=== PATIENT | female | born 1945 | race Caucasian/White ===

== ENCOUNTER 2017-08-28 15:33 | Inpatient (IN) | payer MEDICARE ==
[2017-08-28] MEDS ORDERED: Sodium Chloride 0.65% Nasal 44 ML BOT EA NARE PRN (17:41)
[2017-08-28] MEDS ORDERED: traMADol HCl 50 MG TAB PO PRN (17:41)
[2017-08-28] MEDS ORDERED: GENTAMICIN SULFATE IVPB SCH (17:45)
[2017-08-28] MEDS ORDERED: Dextrose 50% Abboject 50 ML SYRINGE SLOW IVP PRN (17:48)
[2017-08-28] MEDS ORDERED: Dextrose 5% in Water 1,000 ML IV PRN (17:48)
[2017-08-28] MEDS ORDERED: Sodium Chloride 0.9% 0 ML ONE (18:11)
[2017-08-28 18:17] LABS: Glucose Accucheck Confirmation 521 mg/dl (83-110)
[2017-08-28] MEDS: HumaLOG 300 UNITS/3 ML VIAL SC PRN ×2 (18:28→21:35)
[2017-08-28] MEDS: Levemir Flexpen 100 UNITS/ML PEN SC SCH (18:40)
[2017-08-28] MEDS: traMADol HCl 50 MG TAB PO PRN (19:31)
[2017-08-28] MEDS ORDERED: Sodium Chloride 0.9% 20 ML ONE (20:08)
[2017-08-28] MEDS: Gabapentin 100 MG CAP PO SCH (20:23)
[2017-08-28] MEDS: Famotidine 20 MG TAB PO SCH (20:24)
[2017-08-28] MEDS: cefTRIAXone\\ROCEPHIN 2 GM in Sodium Chloride 0.9% 100 ML IVPB SCH (21:23)
[2017-08-28] MEDS: Zolpidem Tartrate 5 MG TAB PO PRN (22:08)
[2017-08-28] MEDS ORDERED: BIOFREEZE TOP PRN (22:19)
[2017-08-28] MEDS ORDERED: PAIN A TRATE TOP PRN (22:22)
[2017-08-29] MEDS: Levothyroxine Sodium 112 MCG TAB PO SCH (05:32)
[2017-08-29] MEDS: Levothyroxine Sodium 25 MCG TAB PO SCH (05:32)
[2017-08-29] MEDS: HumaLOG 300 UNITS/3 ML VIAL SC PRN (05:33)
[2017-08-29 05:56] LABS: ALT (SGPT) Less than 3 U/L (8-55); AST (SGOT) 11 U/L (5-34); Albumin 2.8 g/dL (3.4-4.8); Alkaline Phosphatase 85 U/L (40-150); Anion Gap 16 mmol/L (10-20); BUN (Urea Nitrogen) 59 mg/dL (9.8-20.1); Bilirubin, Total 0.2 mg/dL (0.2-1.2); Calc. Creatinine Clearance 13 mL/min (70-130); Calcium 9.6 mg/dL (7.8-10.44); Carbon Dioxide 25 mmol/L (23-31); Chloride 97 mmol/L (98-107); Estimated GFR-MDRD 7; Globulin 4.6 g/dL (2.4-3.5); Glucose 271 mg/dL (83-110); Potassium 5.4 mmol/L (3.5-5.1); Protein, Total 7.4 g/dL (6.0-8.3); Sodium 133 mmol/L (136-145)
[2017-08-29 06:04] LABS: #Basophils 0.1 thou/uL (0.0-0.2); #Lymphocytes 0.6 thou/uL (1.20-3.40); #Monocytes 0.5 thou/uL (0.11-0.59); #Neutrophils 4.4 thou/uL (1.40-6.50); %Eosinophils 0.8 % (0.0-10.0); %Lymphocytes 11.2 % (21.0-51.0); %Monocytes 9.4 % (0.0-10.0); %Neutrophils 77.5 % (42.0-75.0); Hemoglobin 8.9 g/dL (12.0-16.0); Mean Corpuscular HGB CONC 30.2 g/dL (32.0-36.0); Mean Corpuscular Hemoglobin 31.6 pg (27.0-31.0); Mean Platelet Volume 7.1 fL (7.4-10.4); Platelet Count 172 thou/uL (130-400); RBC Distribution Width 17.3 % (11.5-14.5); Red Blood Cell (RBC) Count 2.83 mill/uL (4.20-5.40); White Blood Cell (WBC) Count 5.6 thou/uL (4.8-10.8)
[2017-08-29 06:05] LABS: Hypochromia SLIGHT = 6-15 cells (100X) (0-5/hpf); MDiff Complete? YES; Macrocytosis MODERATE=16-30 cells (100X) (0-5/hpf); PLT Morphology Comment Appears Adequate
[2017-08-29] MEDS: traMADol HCl 50 MG TAB PO PRN ×3 (08:44→21:12)
[2017-08-29] MEDS: Famotidine 20 MG TAB PO SCH ×2 (08:49→21:11)
[2017-08-29] MEDS: NIFEdipine XL 30 MG TAB PO SCH (08:49)
[2017-08-29] MEDS: Gabapentin 100 MG CAP PO SCH ×2 (08:49→21:11)
[2017-08-29] MEDS: Calcium Acetate 667 MG CAP PO SCH ×3 (08:49→17:21)
[2017-08-29] MEDS: HumaLOG 300 UNITS/3 ML VIAL SC SCH (08:49)
[2017-08-29] MEDS: FOLIC ACID PO SCH (08:50)
[2017-08-29] MEDS: VIT B COMPLEX AND C PO SCH (08:50)
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
[2017-08-29] MEDS ORDERED: cefTRIAXone\\ROCEPHIN 2 GM VIAL IVPB SCH (12:00)
[2017-08-29] MEDS: cefTRIAXone\\ROCEPHIN 2 GM in Sodium Chloride 0.9% 100 ML IVPB SCH (17:30)
[2017-08-29] MEDS: HYDROcodone/Acetaminophen 10/325 mg Tablet PO PRN (17:41)
[2017-08-29] MEDS: Levemir Flexpen 100 UNITS/ML PEN SC SCH (21:19)
[2017-08-29] MEDS: Zolpidem Tartrate 5 MG TAB PO PRN (22:13)
[2017-08-30] MEDS: Levothyroxine Sodium 25 MCG TAB PO SCH (06:18)
[2017-08-30] MEDS: Levothyroxine Sodium 112 MCG TAB PO SCH (06:18)
[2017-08-30] MEDS: HYDROcodone/Acetaminophen 10/325 mg Tablet PO PRN (06:26)
[2017-08-30] MEDS: NIFEdipine XL 30 MG TAB PO SCH (08:49)
[2017-08-30] MEDS: Gabapentin 100 MG CAP PO SCH ×2 (08:50→20:39)
[2017-08-30] MEDS: Calcium Acetate 667 MG CAP PO SCH ×3 (08:50→17:41)
[2017-08-30] MEDS: Famotidine 20 MG TAB PO SCH ×2 (08:51→20:39)
[2017-08-30] MEDS: VIT B COMPLEX AND C PO SCH (08:51)
[2017-08-30] MEDS: FOLIC ACID PO SCH (08:51)
--- NOTE | 2017-08-30 09:28 | PRG ---
DATE OF SERVICE: 08/30/2017 SUBJECTIVE: The patient is a 72-year-old white female with a history of recent septic arthritis on l mukesh-term antibiotics with gentamicin and Rocephin for serratia infection of her right knee, who also has a longstanding history of chronic renal failure on hemodialysis, requiring a Fan catheter bec ause of difficulty with her AV fistula. She has had also a history of chronic pain on fentanyl patch and Dilaudid previously. She at present is having significant pain in her right knee, but is tolera ble on fentanyl patch, hydrocodone and tramadol. She is having questions; however, about her admissi on to this facility and not wanted at [facility] near her home in dialysis unit. She denies any ch est pain or shortness of breath, nausea or vomiting or complaints at this time, but is asking if she can be transferred closer to home. PHYSICAL EXAMINATION: VITAL SIGNS: Show blood pressure 151/69, O2 sats 96%, respirations 18, pulse 61, afebrile. LABORATORY DATA: Accu-Cheks have ranged from 14 on admission to 151 this morning. Appears to be sta ble on her previous low dose of insulin. She has received dialysis yesterday with no difficulty. Sh e denies any shortness of breath or chest pain. ASSESSMENT AND PLAN: 1. Chronic renal failure on hemodialysis, stable 3 times weekly, we will continue. 2. Septic arthritis, right knee secondary to serratia on IV Rocephin and gentamicin with gentamicin being given at dialysis for 6-8 weeks. 3. Chronic pain control with fentanyl and now with hydrocodone. Appears to be sterilely stable. 4. History of deep venous thrombosis. No evidence of recent deep venous thrombosis on CT angio. 5. History of recurrent urinary tract infection with no evidence present. 6. Brittle diabetes controlled on low dose insulin. Monitor closely. 7. Hypertension with fair control on nifedipine and we will monitor.
[2017-08-30] MEDS: HumaLOG 300 UNITS/3 ML VIAL SC SCH (09:40)
[2017-08-30] MEDS: traMADol HCl 50 MG TAB PO PRN (09:43)
[2017-08-30] MEDS: Ondansetron ODT 4 MG TAB PO PRN (10:58)
[2017-08-30] MEDS ORDERED: Sodium Chloride 0.9% 10 ML ONE (17:09)
[2017-08-30] MEDS: cefTRIAXone\\ROCEPHIN 2 GM in Sodium Chloride 0.9% 100 ML IVPB SCH (17:34)
[2017-08-30] MEDS: HumaLOG 300 UNITS/3 ML VIAL SC PRN (17:38)
[2017-08-30] MEDS: Levemir Flexpen 100 UNITS/ML PEN SC SCH (20:38)
[2017-08-30] MEDS: Zolpidem Tartrate 5 MG TAB PO PRN (22:25)
[2017-08-31] MEDS: traMADol HCl 50 MG TAB PO PRN (05:58)
[2017-08-31] MEDS: Levothyroxine Sodium 112 MCG TAB PO SCH (05:59)
[2017-08-31] MEDS: Levothyroxine Sodium 25 MCG TAB PO SCH (05:59)
[2017-08-31] MEDS: Calcium Acetate 667 MG CAP PO SCH ×3 (07:57→17:08)
[2017-08-31] MEDS: fentaNYL 50 mcg/hour Patch TD SCH (09:47)
[2017-08-31] MEDS: Cyclobenzaprine 10 MG TAB PO PRN (09:50)
[2017-08-31] MEDS: Famotidine 20 MG TAB PO SCH ×2 (09:50→21:13)
[2017-08-31] MEDS: Gabapentin 100 MG CAP PO SCH ×2 (09:50→21:13)
[2017-08-31] MEDS: NIFEdipine XL 30 MG TAB PO SCH (09:50)
[2017-08-31] MEDS: HumaLOG 300 UNITS/3 ML VIAL SC SCH (09:52)
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
[2017-08-31] MEDS: FOLIC ACID PO SCH (09:58)
[2017-08-31] MEDS: VIT B COMPLEX AND C PO SCH (09:58)
[2017-08-31] MEDS: cefTRIAXone\\ROCEPHIN 2 GM in Sodium Chloride 0.9% 100 ML IVPB SCH (17:10)
[2017-08-31] MEDS: Levemir Flexpen 100 UNITS/ML PEN SC SCH (21:12)
[2017-08-31] MEDS: HYDROcodone/Acetaminophen 10/325 mg Tablet PO PRN (21:13)
[2017-09-01] MEDS: traMADol HCl 50 MG TAB PO PRN ×2 (04:00→20:34)
[2017-09-01] MEDS: Levothyroxine Sodium 112 MCG TAB PO SCH (05:29)
[2017-09-01] MEDS: Levothyroxine Sodium 25 MCG TAB PO SCH (05:29)
[2017-09-01] MEDS: Calcium Acetate 667 MG CAP PO SCH ×3 (08:22→16:59)
[2017-09-01] MEDS: Gabapentin 100 MG CAP PO SCH ×2 (08:23→20:39)
[2017-09-01] MEDS: Famotidine 20 MG TAB PO SCH ×2 (08:23→20:39)
[2017-09-01] MEDS: HumaLOG 300 UNITS/3 ML VIAL SC SCH (08:24)
[2017-09-01] MEDS: NIFEdipine XL 30 MG TAB PO SCH (08:25)
[2017-09-01] MEDS: FOLIC ACID PO SCH (08:26)
[2017-09-01] MEDS: VIT B COMPLEX AND C PO SCH (08:26)
[2017-09-01] MEDS: NEPHROVITE PO SCH (08:30)
[2017-09-01] MEDS: HYDROcodone/Acetaminophen 10/325 mg Tablet PO PRN ×2 (08:34→15:42)
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
[2017-09-01] MEDS: Cyclobenzaprine 10 MG TAB PO PRN (15:43)
[2017-09-01] MEDS: HumaLOG 300 UNITS/3 ML VIAL SC PRN (17:00)
[2017-09-01] MEDS: cefTRIAXone\\ROCEPHIN 2 GM in Sodium Chloride 0.9% 100 ML IVPB SCH (18:10)
[2017-09-01] MEDS: Levemir Flexpen 100 UNITS/ML PEN SC SCH (20:37)
[2017-09-01] MEDS: Zolpidem Tartrate 5 MG TAB PO PRN (22:51)
[2017-09-02] MEDS: HYDROcodone/Acetaminophen 10/325 mg Tablet PO PRN ×3 (03:21→20:36)
[2017-09-02] MEDS: Levothyroxine Sodium 112 MCG TAB PO SCH (06:22)
[2017-09-02] MEDS: Levothyroxine Sodium 25 MCG TAB PO SCH (06:22)
[2017-09-02] MEDS: Calcium Acetate 667 MG CAP PO SCH ×3 (08:18→16:46)
[2017-09-02] MEDS: NIFEdipine XL 30 MG TAB PO SCH (08:19)
[2017-09-02] MEDS: Gabapentin 100 MG CAP PO SCH ×2 (08:19→20:37)
[2017-09-02] MEDS: Famotidine 20 MG TAB PO SCH ×2 (08:19→20:37)
[2017-09-02] MEDS: HumaLOG 300 UNITS/3 ML VIAL SC SCH (08:19)
[2017-09-02] MEDS: VIT B COMPLEX AND C PO SCH (08:20)
[2017-09-02] MEDS: FOLIC ACID PO SCH (08:20)
[2017-09-02] MEDS: NEPHROVITE PO SCH (08:20)
[2017-09-02] MEDS ORDERED: Folic Acid/Vit B Comp W-C PO SCH (13:15)
[2017-09-02] MEDS: traMADol HCl 50 MG TAB PO PRN (16:47)
[2017-09-02] MEDS: HumaLOG 300 UNITS/3 ML VIAL SC PRN (17:05)
[2017-09-02] MEDS: cefTRIAXone\\ROCEPHIN 2 GM in Sodium Chloride 0.9% 100 ML IVPB SCH (17:43)
[2017-09-02] MEDS: Cyclobenzaprine 10 MG TAB PO PRN (20:37)
[2017-09-02] MEDS: Levemir Flexpen 100 UNITS/ML PEN SC SCH (20:37)
[2017-09-03] MEDS: HYDROcodone/Acetaminophen 10/325 mg Tablet PO PRN (03:28)
[2017-09-03] MEDS: Levothyroxine Sodium 25 MCG TAB PO SCH (06:19)
[2017-09-03] MEDS: Levothyroxine Sodium 112 MCG TAB PO SCH (06:19)
--- NOTE | 2017-09-03 07:04 | PRG ---
DATE OF SERVICE: 09/02/2017 SUBJECTIVE: The patient is complaining and wanting to be transferred closer to [place], stating she is still having significant pain in her right knee and also complaining of some problems with we akness in her hand and dropping things. She states she is not having any shortness of breath, headac hes, dizziness or chest pain. OBJECTIVE: VITAL SIGNS: Blood pressure is 170/76, O2 saturations 92% on room air, pulse is 80, she is afebrile. LUNGS: Lungs are clear. CARDIAC: Cardiac examination shows regular rhythm. EXTREMITIES: Right knee shows no erythema or warmth, but significant tenderness with any movement. She refused physical therapy again today and the CPM. I discussed the case with her daughter who und erstands about the insurance situation and about the refusal of [place] to take the patient and the need to stay on IV antibiotics and the fact that insurance most likely will not pay for this at [facility] and that her mother needs assistance which she would not receive at home. Therefore, came to the realization that senior living in the [place] may be the best alternative and will discuss this with her mother. ASSESSMENT: 1. Resolving septic knee of right knee status post incision and drainage, on IV Rocephin daily until 09/22/2017 and gentamicin after each dialysis until that time. 2. End-stage renal disease on dialysis Friday, Friday, and Friday, requiring transport to [place], but stable. 3. Chronic pain followed by Dr. Yeung, fentanyl patch and tramadol with fair control, but was still refusing therapy of her knee. 4. Recurrent urinary tract infection, no evidence of recurrence at this time. 5. History of deep venous thrombosis, no evidence of recurrence on prophylaxis. 6. Hypertension, well controlled. 7. Brittle diabetes on low dose insulin being controlled fairly on mild sliding scale. PLAN: 1. Discuss with hospital about possible acceptance at [place]. 2. Continue to stress need for physical therapy and CPM. 3. Continue IV Rocephin. 4. Continue low dose Levemir at night and Humalog in morning.
--- NOTE | 2017-09-03 07:14 | PRG ---
DATE OF SERVICE: 09/03/2017 SUBJECTIVE: The patient is awake and more cheerful today and has agreed to transfer to [facility] in [place] if this is possible. She also has agreed to comply with physical therapy a nd with CPM and will discuss with physical therapy again today as she has refused this in the past. She is more concerned about the tremors in her hand, but states that she has had this in the past whe n she was taking gabapentin twice daily and will therefore decrease the dose to once daily. She has denied any fever, chills or cough. OBJECTIVE: VITAL SIGNS: Shows her blood pressure is 155/65, O2 sats 94%, respirations 18, temperature is 97.9. Accu-Cheks have ranged from 97 to 348, but the patient is on a sliding scale in addition to her rout ine insulin. EXTREMITIES: Right knee is not swollen or red, but is significantly tender, but is able to move some what at this time. ASSESSMENT: 1. Resolving septic knee on IV Rocephin daily and gentamicin with follow up with her surgeon on 08/22. 2. End-stage renal disease on hemodialysis 3 times weekly, tolerating well. 3. Insulin-dependent diabetes on a low dose Levemir and Humalog. We will discontinue sliding scale and increase these doses of medication to 9 units of Levemir at night and 9 units Humalog in the morn ing. 4. Chronic pain, on fentanyl patch and tramadol with stable back pain and slightly improved knee eliz n, we will continue on his medication, but will decrease gabapentin. 5. Tremors, most likely due to gabapentin as this has occurred in the past and we will decrease dose to night time.
[2017-09-03] MEDS: Folic Acid/Vit B Comp W-C PO SCH (09:18)
[2017-09-03] MEDS: NIFEdipine XL 30 MG TAB PO SCH (09:18)
[2017-09-03] MEDS: Calcium Acetate 667 MG CAP PO SCH ×4 (09:19→19:18)
[2017-09-03] MEDS: Famotidine 20 MG TAB PO SCH ×2 (09:19→21:26)
[2017-09-03] MEDS: HumaLOG 300 UNITS/3 ML VIAL SC SCH (09:19)
[2017-09-03] MEDS: Cyclobenzaprine 10 MG TAB PO PRN ×2 (09:27→21:32)
[2017-09-03] MEDS: fentaNYL 50 mcg/hour Patch TD SCH (10:30)
[2017-09-03] MEDS: cefTRIAXone\\ROCEPHIN 2 GM in Sodium Chloride 0.9% 100 ML IVPB SCH (18:12)
[2017-09-03] MEDS ORDERED: Gabapentin 300 MG CAP PO SCH (21:00)
[2017-09-03] MEDS: Levemir Flexpen 100 UNITS/ML PEN SC SCH (21:27)
[2017-09-03] MEDS: Zolpidem Tartrate 5 MG TAB PO PRN (21:31)
[2017-09-04] MEDS: traMADol HCl 50 MG TAB PO PRN ×2 (05:51→12:06)
[2017-09-04] MEDS: Levothyroxine Sodium 25 MCG TAB PO SCH (05:51)
[2017-09-04] MEDS: Levothyroxine Sodium 112 MCG TAB PO SCH (05:51)
[2017-09-04] MEDS: HumaLOG 300 UNITS/3 ML VIAL SC SCH (08:21)
[2017-09-04] MEDS: NIFEdipine XL 30 MG TAB PO SCH (08:21)
[2017-09-04] MEDS: Calcium Acetate 667 MG CAP PO SCH ×3 (08:22→17:47)
[2017-09-04] MEDS: Famotidine 20 MG TAB PO SCH ×2 (08:23→21:28)
[2017-09-04] MEDS: Cyclobenzaprine 10 MG TAB PO PRN ×2 (08:23→18:04)
[2017-09-04] MEDS: Folic Acid/Vit B Comp W-C PO SCH (08:23)
[2017-09-04] MEDS: cefTRIAXone\\ROCEPHIN 2 GM in Sodium Chloride 0.9% 100 ML IVPB SCH (17:48)
[2017-09-04] MEDS: Levemir Flexpen 100 UNITS/ML PEN SC SCH (21:29)
[2017-09-05] MEDS: traMADol HCl 50 MG TAB PO PRN ×2 (02:18→20:14)
[2017-09-05] MEDS: Levothyroxine Sodium 112 MCG TAB PO SCH (05:29)
[2017-09-05] MEDS: Levothyroxine Sodium 25 MCG TAB PO SCH (05:29)
[2017-09-05] MEDS: HYDROcodone/Acetaminophen 10/325 mg Tablet PO PRN (06:25)
[2017-09-05] MEDS: Famotidine 20 MG TAB PO SCH ×2 (07:55→20:14)
[2017-09-05] MEDS: Calcium Acetate 667 MG CAP PO SCH ×3 (07:55→17:00)
[2017-09-05] MEDS: Folic Acid/Vit B Comp W-C PO SCH (07:55)
[2017-09-05] MEDS: NIFEdipine XL 30 MG TAB PO SCH (07:56)
[2017-09-05] MEDS: HumaLOG 300 UNITS/3 ML VIAL SC SCH (07:59)
--- NOTE | 2017-09-05 13:32 | PRG ---
DATE OF SERVICE: 09/05/2017 SUBJECTIVE: The patient feels well, sitting in the chair except for pain in her knee, but was able t o transfer today. She is still looking into transfer and understands all is being done to do this. OBJECTIVE: VITAL SIGNS: Shows her blood pressure still is normal at rest, but with exercise increased to 177/79 , O2 sats 91% on room air, but does go to 99 with deep breaths, respirations 20, pulse 78, temperatur e is 97. LUNGS: Clear. CARDIAC: Examination shows regular rhythm. ABDOMEN: Soft and nontender. LABORATORY DATA: Laboratory show Accu-Cheks still elevated to greater than 250 on increased insulin, so we will need to increase the dose. PLAN: 1. Increase insulin to 10 units of Levemir at night and 10 units Humalog during the day. 2. Continue pain relief with hydrocodone, fentanyl patch, and tramadol. 3. Continue dialysis 3 times weekly. 4. Continue to stress PT/OT. 5. Repeat CBC, base met profile in the a.m.
--- NOTE | 2017-09-05 13:33 | PRG ---
DATE OF SERVICE: 09/04/2017 SUBJECTIVE: The patient lying in bed, stating that she slept fair last night, but has still been bhanu ble to do therapy. She has been eating fairly well with no chest pain or shortness of breath. She i s concerned about some tremors in her hand and it was felt this was due to her gabapentin which has b een decreased, but is still present. She is still concerned and her daughter is working on a transfe r to [place]. She is having no shortness of breath or chest pain. OBJECTIVE: VITAL SIGNS: Shows her blood pressure is 138/62, goes to 198/92 with therapy, respirations 20, O2 sa ts 98%, temperature 95, pulse 82. LUNGS: Lungs are clear. CARDIAC: Cardiac examination shows regular rhythm. No gallops or murmurs. ABDOMEN: Soft and nontender with no masses or organomegaly. SKIN AND EXTREMITIES: Shows right knee is not swollen or red, but significantly tender. LABORATORY: Laboratory show her Accu-Cheks had only fair control running from 203-334 despite being on increasing doses of insulin. ASSESSMENT: 1. Right septic knee on IV Rocephin and gentamicin at dialysis. Appears to be healing, but with per sistent pain. 2. Chronic kidney disease on dialysis 3 times weekly. 3. Chronic pain, on fentanyl patch and tramadol. 4. Stable back pain, but persistent knee pain. 5. Severe tremors persistent despite decreasing gabapentin. PLAN: Discontinue gabapentin, continue to look into transfer to [place] which would please the patient. Continue dialysis 3 times weekly. Continue to slowly titrate up the Levemir and Humalog if no improvement in her Accu-Cheks.
[2017-09-05] MEDS: Ondansetron ODT 4 MG TAB PO PRN (16:50)
[2017-09-05] MEDS: cefTRIAXone\\ROCEPHIN 2 GM in Sodium Chloride 0.9% 100 ML IVPB SCH (18:18)
[2017-09-05] MEDS ORDERED: Levemir Flexpen 100 UNITS/ML PEN SC SCH (21:00)
[2017-09-06] MEDS: Levothyroxine Sodium 25 MCG TAB PO SCH (05:33)
[2017-09-06] MEDS: Levothyroxine Sodium 112 MCG TAB PO SCH (05:33)
[2017-09-06] MEDS: traMADol HCl 50 MG TAB PO PRN ×3 (05:33→21:06)
--- NOTE | 2017-09-06 07:28 | PRG ---
DATE OF SERVICE: 09/06/2017 DATE OF ADMISSION: 09/07/2017 HISTORY OF PRESENT ILLNESS: Ms. Nevarez is a very pleasant 72-year-old white female with type 2 diabe sary, peripheral neuropathy, diabetic nephropathy with end-stage renal disease on dialysis 3 times a w kake that presented herself to [facility] to 08/17/2017 with severe right knee pain. She was found to have septic arthritis which was drained and a culture grew out serratia which was sensitive to Rocephin. She was placed on Rocephin and gentamicin at dialysis. She was transferred here for c ontinued physical therapy and occupational therapy and for dialysis 3 times a week. She was admitted to [facility] for dialysis care and her IV antibiotics. The patient states she is doing well. Her sugars have been out of control and Dr. Lazo increased her insulins yesterday. We will follow that for a couple days and maybe increase them again soon. She has no specific complaints at this time. OBJECTIVE: VITAL SIGNS: Reveal blood pressure last night was 177/81, prior to that was 133/65. Pulse is 78-105 , respirations 18-20, oxygen sat is 97%-96% on 2 liters nasal cannula. GENERAL: This is a well-developed, well-nourished, very pleasant white female in no apparent distres s at this time. HEENT: Reveals normocephalic, nontraumatic cranium. Pupils are equally round and reactive. Nose an d throat are somewhat dry. NECK: Supple, without mass, nodes or bruits. CHEST: Clear to auscultation. No rales, no rhonchi, no wheezes or cough is heard. CARDIOVASCULAR: Reveals a regular rate and rhythm without murmurs, gallops or rubs. ABDOMEN: Soft and nontender, without organomegaly, normal bowel sounds are noted. No rebound or gua rding is noted. GENITOURINARY: Deferred. EXTREMITIES: Reveal incision over her right knee is not red, not warm, not draining. It looks like it is healing well. LABORATORY DATA: Dr. Lazo apparently ordered labs yesterday morning, but they are not back yet. ASSESSMENT: 1. Septic arthritis. 2. End-stage renal disease on dialysis 3 times a week. 3. Diabetes out of control. 4. Diabetic nephropathy. 5. Diabetic neuropathy. 6. Serratia infection of the right knee, presently on Rocephin 2 grams IV daily for a month and then gentamicin 120 mg after each dialysis. 7. Chronic pain followed by Dr. Yeung and Dr. Onesimo Louie. 8. History of recurrent urinary tract infections. 9. History of deep venous thrombosis. 10. Hypertension. PLAN: 1. Continue IV antibiotics and antibiotics after dialysis. 2. Dr. Lazo adjusted her insulin yesterday. We will monitor that for a couple days and readjust it. 3. Continue to follow the patient's blood pressure closely. 4. Deep venous thrombosis prophylaxis. 5. Decubitus precautions. 6. Stress ulcer precautions. 7. Physical therapy and occupational therapy.
[2017-09-06] MEDS: Docusate 100 MG CAP PO SCH ×2 (08:23→20:59)
[2017-09-06] MEDS: Calcium Acetate 667 MG CAP PO SCH ×3 (08:23→16:45)
[2017-09-06] MEDS: fentaNYL 50 mcg/hour Patch TD SCH (08:24)
[2017-09-06] MEDS: Famotidine 20 MG TAB PO SCH ×2 (08:24→20:59)
[2017-09-06] MEDS: Folic Acid/Vit B Comp W-C PO SCH (08:27)
[2017-09-06] MEDS: HumaLOG 300 UNITS/3 ML VIAL SC SCH (08:28)
[2017-09-06] MEDS: NIFEdipine XL 30 MG TAB PO SCH (08:29)
[2017-09-06] MEDS: HYDROcodone/Acetaminophen 10/325 mg Tablet PO PRN (15:28)
[2017-09-06] MEDS ORDERED: HumaLOG 300 UNITS/3 ML VIAL SC PRN (17:37)
[2017-09-06] MEDS: cefTRIAXone\\ROCEPHIN 2 GM in Sodium Chloride 0.9% 100 ML IVPB SCH (17:45)
[2017-09-06] MEDS: Levemir Flexpen 100 UNITS/ML PEN SC SCH (20:56)
[2017-09-06] MEDS: Zolpidem Tartrate 5 MG TAB PO PRN (22:49)
[2017-09-07] MEDS: Levothyroxine Sodium 25 MCG TAB PO SCH (05:15)
[2017-09-07] MEDS: Levothyroxine Sodium 112 MCG TAB PO SCH (05:15)
--- NOTE | 2017-09-07 07:40 | PRG ---
DATE OF SERVICE: 09/07/2017 DATE OF ADMISSION: 08/28/2017 HISTORY OF PRESENT ILLNESS: Ms. Nevarez is a very pleasant 72-year-old white female that presented to the emergency room at [place] with severe right knee pain. She had septic arthritis, which was d rained. Unfortunately, grew out serratia, which was sensitive to Rocephin and gentamicin. She gets Rocephin daily and gentamicin at dialysis. Transferred to [facility] for continued p hysical therapy and occupational therapy and for dialysis 3 times a week. She has comorbidities of d iabetes type 2, which has been out of control; peripheral neuropathy; diabetic neuropathy; end-stage renal disease. The patient is doing well and is very pleased and surprised that her blood sugar this morning was 80. She had no symptoms. It was up to 407 yesterday afternoon. We will get diabetic carb counting cla sses for her when dietary comes back. PHYSICAL EXAMINATION: VITAL SIGNS: Revealed blood pressure last night 109/56, pulse 66-74, respirations 18, O2 sat 95%-97% on room air, T-max 97.7. GENERAL: On physical exam, this is a well-developed, well-nourished white female, in no apparent dis tress at this time. HEENT: Reveals normocephalic, nontraumatic cranium. Pupils equally round and reactive. Extraocular movements intact. Nose and throat are slightly dry. NECK: Supple, without mass, nodes, or bruits. LUNGS: Chest is clear to auscultation. No rales, no rhonchi, no wheezes are heard. No cough is not ed. HEART: Reveals a regular rate and rhythm without murmurs, gallops, or rubs. ABDOMEN: Soft, nontender, without organomegaly, normal bowel sounds are noted. No rebound or guardi ng is noted. EXAM: Deferred. EXTREMITIES: Reveal no clubbing, cyanosis, or edema. Her right knee incision looks good. It is not draining, it is not infected, it is not red or warm. LABORATORY DATA: Point of care sugars revealed her sugar this morning was 80, last night 235, before supper 407, before lunch 201, before breakfast yesterday morning fasting 276. I did increase her La ntus to 20 b.i.d. IMPRESSION: 1. Septic arthritis of the right knee. 2. End-stage renal disease, on dialysis 3 times a week. 3. Diabetes out of control, Levemir has been adjusted. 4. Diabetic neuropathy. 5. Diabetic nephropathy. 6. Serratia infection of the right knee, presently on Rocephin 2 grams IV daily for a month and then gentamicin 120 mg after each dialysis. 7. Chronic pain, followed by Dr. Yeung and Dr. Arturo Louie. 8. History of recurrent urinary tract infections. 9. History of deep venous thrombosis. 10. Hypertension. PLAN: 1. Continue IV antibiotics and gentamicin after dialysis. 2. Continue to follow the patient's blood sugars closely. 3. Monitor the patient's blood pressure closely. 4. Deep venous thrombosis prophylaxis. 5. Stress ulcer prophylaxis. 6. Decubitus precautions. 7. Physical therapy and occupational therapy.
[2017-09-07] MEDS: Docusate 100 MG CAP PO SCH ×2 (08:24→20:52)
[2017-09-07] MEDS: Calcium Acetate 667 MG CAP PO SCH ×3 (08:24→16:52)
[2017-09-07] MEDS: Famotidine 20 MG TAB PO SCH ×2 (08:24→20:52)
[2017-09-07] MEDS: Folic Acid/Vit B Comp W-C PO SCH (08:25)
[2017-09-07] MEDS: NIFEdipine XL 30 MG TAB PO SCH (08:25)
[2017-09-07] MEDS: HumaLOG 300 UNITS/3 ML VIAL SC SCH (08:25)
[2017-09-07] MEDS: HYDROcodone/Acetaminophen 10/325 mg Tablet PO PRN (08:30)
[2017-09-07] MEDS: Cyclobenzaprine 10 MG TAB PO PRN (11:50)
[2017-09-07] MEDS: traMADol HCl 50 MG TAB PO PRN ×2 (11:50→20:53)
[2017-09-07 15:32] LABS: Hemoglobin A1c 7.7 % (4.0-6.0)
[2017-09-07] MEDS: cefTRIAXone\\ROCEPHIN 2 GM in Sodium Chloride 0.9% 100 ML IVPB SCH (17:48)
[2017-09-07] MEDS: Levemir Flexpen 100 UNITS/ML PEN SC SCH (20:54)
[2017-09-07] MEDS: Zolpidem Tartrate 5 MG TAB PO PRN (22:03)
[2017-09-08] MEDS: HYDROcodone/Acetaminophen 10/325 mg Tablet PO PRN ×3 (01:03→15:30)
[2017-09-08] MEDS: Levothyroxine Sodium 112 MCG TAB PO SCH (05:52)
[2017-09-08] MEDS: Levothyroxine Sodium 25 MCG TAB PO SCH (05:52)
[2017-09-08] MEDS: Folic Acid/Vit B Comp W-C PO SCH (08:29)
[2017-09-08] MEDS: Calcium Acetate 667 MG CAP PO SCH ×3 (08:29→17:36)
[2017-09-08] MEDS: Docusate 100 MG CAP PO SCH ×2 (08:29→20:47)
[2017-09-08] MEDS: NIFEdipine XL 30 MG TAB PO SCH (08:29)
[2017-09-08] MEDS: Famotidine 20 MG TAB PO SCH ×2 (08:30→20:47)
[2017-09-08] MEDS: HumaLOG 300 UNITS/3 ML VIAL SC SCH (08:30)
[2017-09-08] MEDS: cefTRIAXone\\ROCEPHIN 2 GM in Sodium Chloride 0.9% 100 ML IVPB SCH (17:34)
[2017-09-08] MEDS: Levemir Flexpen 100 UNITS/ML PEN SC SCH (20:48)
[2017-09-08] MEDS: traMADol HCl 50 MG TAB PO PRN (20:49)
[2017-09-08] MEDS: Zolpidem Tartrate 5 MG TAB PO PRN (20:50)
--- NOTE | 2017-09-08 21:27 | PRG ---
DATE OF SERVICE: 09/08/2017 SUBJECTIVE: The patient feels well and is ready to see orthopedic surgeon yesterday and has talked t o her range operator today, who has told her that she does not need dialysis, but twice weekly and ther efore, should be able to go to [place] in the next day or two. She has been cooperating with aly anderson, still having pain, but appears to be improving. OBJECTIVE: VITAL SIGNS: Blood pressure 145/70, temperature is 98, pulse 88, respirations 18, O2 sats 95% on anneliese m air. LUNGS: Clear. CARDIAC: Regular rhythm. No gallops or murmurs. ABDOMEN: Soft, nontender. EXTREMITIES: Right knee shows no erythema, tenderness, or warmth. LABORATORY DATA: Accu-Chek improved from 280 to 212 on increased dose of insulin. Hemoglobin A1c is 7.7. ASSESSMENT: 1. Resolving septic arthritis, on IV Rocephin and gentamicin until 09/22/2017. 2. Uncontrolled diabetes, in control now with increased insulin. 3. Chronic pain, being followed by Dr. Yeung and Dr. Louie on fentanyl patch and tramadol. 4. Recurrent urinary tract infections. No recurrence now that on Rocephin and vancomycin. 5. History of deep venous thrombosis with no evidence of recurrence. 6. Hypertension, well controlled. PLAN: 1. Follow up with orthopedic surgeon, Dr. Zaman, tomorrow. 2. Hopefully, transfer to [place] tomorrow or the next day for continued dialysis, pain relief, an d IV antibiotics.
[2017-09-09] MEDS: traMADol HCl 50 MG TAB PO PRN ×2 (04:30→21:27)
[2017-09-09] MEDS: Ondansetron ODT 4 MG TAB PO PRN ×2 (04:31→14:11)
[2017-09-09] MEDS: Levothyroxine Sodium 112 MCG TAB PO SCH (05:46)
[2017-09-09] MEDS: Levothyroxine Sodium 25 MCG TAB PO SCH (05:46)
[2017-09-09] MEDS: NIFEdipine XL 30 MG TAB PO SCH (08:47)
[2017-09-09] MEDS: HYDROcodone/Acetaminophen 10/325 mg Tablet PO PRN ×2 (08:48→15:50)
[2017-09-09] MEDS: Famotidine 20 MG TAB PO SCH ×2 (08:48→21:26)
[2017-09-09] MEDS: Docusate 100 MG CAP PO SCH ×2 (08:48→21:26)
[2017-09-09] MEDS: HumaLOG 300 UNITS/3 ML VIAL SC SCH (08:50)
[2017-09-09] MEDS: Folic Acid/Vit B Comp W-C PO SCH (08:50)
[2017-09-09] MEDS: Calcium Acetate 667 MG CAP PO SCH ×3 (08:51→17:41)
[2017-09-09] MEDS: fentaNYL 50 mcg/hour Patch TD SCH (12:04)
[2017-09-09] MEDS: cefTRIAXone\\ROCEPHIN 2 GM in Sodium Chloride 0.9% 100 ML IVPB SCH (17:41)
--- NOTE | 2017-09-09 21:04 | PRG ---
DATE OF SERVICE: 09/09/2017 SUBJECTIVE: The patient feels well, awaiting appointment with orthopedic surgeons today and will hop efully be able to be transferred to [place] afterwards; however, it was found that there was nob jo ann at the dialysis center today to answer questions of scheduling her dialysis for Friday, so hopefu lly she will be transferred tomorrow when they are able to accept her. She is having stable, but krishna erable pain. She is having no shortness of breath or chest pain, abdominal pain or nausea. OBJECTIVE: VITAL SIGNS: Temperature is 98, pulse 81, respirations 19, O2 sats 90% on room air, blood pressure 1 56/72. Accu-Cheks range from 84 to 279. LUNGS: Clear. CARDIAC: Displays regular rhythm, no gallops or murmurs. ABDOMEN: Soft and nontender. Right knee is swollen and tender, but with no erythema or warmth. ASSESSMENT: 1. Resolving septic arthritis on IV Rocephin and gentamicin until 09/22/2017. 2. Diabetes with improved control. Increase insulin. 3. Chronic pain in the back and legs, on fentanyl patch and tramadol being followed by Dr. Julien er. 4. History of deep with no evidence of recurrence. 5. Hypertension, good control. PLAN: 1. Hopefully follow up with [facility] tomorrow for continued dialysis pain relief and I V antibiotics. 2. Follow up with Dr. Zaman today and obtain results of his followup tomorrow.
[2017-09-09] MEDS: Levemir Flexpen 100 UNITS/ML PEN SC SCH (21:26)
[2017-09-09] MEDS: Zolpidem Tartrate 5 MG TAB PO PRN (21:27)
[2017-09-10] MEDS: HYDROcodone/Acetaminophen 10/325 mg Tablet PO PRN ×3 (02:33→20:40)
[2017-09-10] MEDS: Ondansetron ODT 4 MG TAB PO PRN ×4 (02:33→20:55)
[2017-09-10] MEDS: Levothyroxine Sodium 25 MCG TAB PO SCH (05:38)
[2017-09-10] MEDS: Levothyroxine Sodium 112 MCG TAB PO SCH (05:38)
[2017-09-10] MEDS: traMADol HCl 50 MG TAB PO PRN ×2 (06:22→14:23)
--- NOTE | 2017-09-10 06:56 | PRG ---
DATE OF SERVICE: 09/10/2017 SUBJECTIVE: The patient is lying in the bed resting, minimal pain at rest and has been cooperating w ith therapy, but still is nonweightbearing on the right knee. She had no fever, chills, cough, short ness of breath. OBJECTIVE: EXTREMITIES: Right knee has healing incision with no erythema or warmth. Still on IV antibiotics un til 09/22/2017 with significant pain on any movement. Orthopedic consult revealed no need for follow up and weightbearing as tolerated, antibiotics until finished per Dr. Rosario. VITAL SIGNS: Vital sig ns show temperature is 96, pulse 88, respirations 20, O2 sats 99% on room air, blood pressure 142/70. LUNGS: Clear. CARDIAC: Cardiac examination shows irregularly irregular rhythm. Accu-Cheks range from 84 to 293. ASSESSMENT: 1. Resolving septic arthritis on gentamicin at dialysis and Rocephin IV daily until 09/22/2017. 2. Labile diabetes with improved, but still inadequate control on increased doses of insulin. 3. Chronic pain in the back and legs on fentanyl patch and tramadol being followed by Dr. Renee manyard 4. Severe degenerative joint disease of right knee. 5. History of deep venous thrombosis with no evidence of recurrence. 6. Hypertension, good control. PLAN: 1. Transfer to [place] and ensure that they can take care of her dialysis twice weekly with a Hick man catheter. 2. Continue IV Rocephin and gentamicin until 09/22/2017. 3. Continue Accu-Cheks and titrate and control diabetes. 4. Repeat CBC and base met profile in the a.m.
[2017-09-10] MEDS: Folic Acid/Vit B Comp W-C PO SCH (08:14)
[2017-09-10] MEDS: Famotidine 20 MG TAB PO SCH ×2 (08:14→20:40)
[2017-09-10] MEDS: Calcium Acetate 667 MG CAP PO SCH ×3 (08:14→17:23)
[2017-09-10] MEDS: Docusate 100 MG CAP PO SCH ×2 (08:14→20:39)
[2017-09-10] MEDS: HumaLOG 300 UNITS/3 ML VIAL SC SCH (08:15)
[2017-09-10] MEDS: NIFEdipine XL 30 MG TAB PO SCH (08:15)
[2017-09-10] MEDS: cefTRIAXone\\ROCEPHIN 2 GM in Sodium Chloride 0.9% 100 ML IVPB SCH (17:23)
[2017-09-10] MEDS: Levemir Flexpen 100 UNITS/ML PEN SC SCH (20:40)
[2017-09-10] MEDS: Zolpidem Tartrate 5 MG TAB PO PRN (20:40)
[2017-09-11] MEDS: Levothyroxine Sodium 112 MCG TAB PO SCH (05:44)
[2017-09-11] MEDS: Levothyroxine Sodium 25 MCG TAB PO SCH (05:44)
[2017-09-11 05:55] LABS: #Basophils 0.1 thou/uL (0.0-0.2); #Lymphocytes 0.7 thou/uL (1.20-3.40); #Monocytes 0.6 thou/uL (0.11-0.59); %Basophils 1.2 % (0.0-1.0); %Eosinophils 0.9 % (0.0-10.0); %Lymphocytes 13.2 % (21.0-51.0); %Monocytes 10.6 % (0.0-10.0); %Neutrophils 74.2 % (42.0-75.0); Hemoglobin 10.9 g/dL (12.0-16.0); Mean Corpuscular HGB CONC 31.1 g/dL (32.0-36.0); Mean Platelet Volume 5.8 fL (7.4-10.4); Platelet Count 190 thou/uL (130-400); RBC Distribution Width 15.1 % (11.5-14.5); Red Blood Cell (RBC) Count 3.42 mill/uL (4.20-5.40); White Blood Cell (WBC) Count 5.4 thou/uL (4.8-10.8)
[2017-09-11 06:09] LABS: ALT (SGPT) 9 U/L (8-55); AST (SGOT) 14 U/L (5-34); Albumin 2.9 g/dL (3.4-4.8); Alkaline Phosphatase 92 U/L (40-150); Anion Gap 18 mmol/L (10-20); BUN (Urea Nitrogen) 50 mg/dL (9.8-20.1); Bilirubin, Total 0.2 mg/dL (0.2-1.2); Calc. Creatinine Clearance 16 mL/min (70-130); Carbon Dioxide 26 mmol/L (23-31); Chloride 94 mmol/L (98-107); Estimated GFR-MDRD 9; Globulin 5.3 g/dL (2.4-3.5); Glucose 290 mg/dL (83-110); Potassium 4.2 mmol/L (3.5-5.1); Protein, Total 8.2 g/dL (6.0-8.3); Sodium 134 mmol/L (136-145)
[2017-09-11] MEDS: traMADol HCl 50 MG TAB PO PRN ×3 (06:17→21:20)
[2017-09-11] MEDS: Ondansetron ODT 4 MG TAB PO PRN ×2 (06:17→12:14)
[2017-09-11] MEDS: HumaLOG 300 UNITS/3 ML VIAL SC SCH (07:57)
[2017-09-11] MEDS: Calcium Acetate 667 MG CAP PO SCH ×3 (07:57→17:01)
[2017-09-11] MEDS: Famotidine 20 MG TAB PO SCH ×2 (07:57→21:19)
[2017-09-11] MEDS: Docusate 100 MG CAP PO SCH ×2 (07:57→21:19)
[2017-09-11] MEDS: Folic Acid/Vit B Comp W-C PO SCH (07:57)
[2017-09-11] MEDS: NIFEdipine XL 30 MG TAB PO SCH (07:58)
--- NOTE | 2017-09-11 13:24 | PRG ---
DATE OF SERVICE: 09/11/2017 SUBJECTIVE: Ms. Nevarez is doing well, resting comfortably. Denies any complaints. No family at bedside. OBJECTIVE: VITAL SIGNS: She is afebrile, heart rate 79, respirations 20, oxygen saturation 96% on room air, blood pressure 167/74. CARDIOVASCULAR:S1,S2+ RESPIRATORY: No vesicular breath sounds. ABDOMEN: Soft, nontender, bowel sounds heard in all quadrants. EXTREMITIES: Without cyanosis or clubbing. Right knee incision is healthy. She does have stasis dermatitis in both her legs. 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 HUMAN RESOURCES HR REPRESENTATIVE: Grossly nonfocal. LABORATORY VALUES: White count 5.4, H&H is 10.9 and 35.2 with macrocytosis. Chemistry shows a sodium 134, potassium 4.2, BUN and creatinine 50 and 4.59 which is improved from before. Blood sugars are 282, 291, 290 and 237. IMPRESSION: 1. Right knee septic arthritis, on gentamicin and Rocephin. 2. End-stage renal disease, on hemodialysis. 3. Diabetes mellitus, not well controlled. 4. Chronic pain. 5. Degenerative joint disease. 6. History of deep venous thrombosis. 7. Hypertension. PLAN: 1. Continue current medications. 2. Hemodialysis. 3. Monitor blood pressure. 4. Adjust medications. 5. DVT and stress ulcer prophylaxis. 6. Decubitus precautions. 7. Routine laboratory values. 8. Wound care. 9. Discussed with patient and nursing in detail. All questions answered. YESID
[2017-09-11] MEDS: cefTRIAXone\\ROCEPHIN 2 GM in Sodium Chloride 0.9% 100 ML IVPB SCH (18:37)
[2017-09-11] MEDS: Levemir Flexpen 100 UNITS/ML PEN SC SCH (21:24)
[2017-09-11] MEDS: Zolpidem Tartrate 5 MG TAB PO PRN (22:07)
[2017-09-12] MEDS: HYDROcodone/Acetaminophen 10/325 mg Tablet PO PRN ×2 (01:41→16:20)
[2017-09-12] MEDS: Levothyroxine Sodium 25 MCG TAB PO SCH (06:09)
[2017-09-12] MEDS: traMADol HCl 50 MG TAB PO PRN ×2 (06:09→21:36)
[2017-09-12] MEDS: Levothyroxine Sodium 112 MCG TAB PO SCH (06:09)
[2017-09-12] MEDS: Folic Acid/Vit B Comp W-C PO SCH ×2 (08:07→08:10)
[2017-09-12] MEDS: NIFEdipine XL 30 MG TAB PO SCH (08:08)
[2017-09-12] MEDS: Calcium Acetate 667 MG CAP PO SCH ×3 (08:10→17:31)
[2017-09-12] MEDS: HumaLOG 300 UNITS/3 ML VIAL SC SCH (08:10)
[2017-09-12] MEDS: Docusate 100 MG CAP PO SCH ×2 (08:10→21:34)
[2017-09-12] MEDS: Famotidine 20 MG TAB PO SCH ×2 (08:10→21:34)
[2017-09-12] MEDS: fentaNYL 50 mcg/hour Patch TD SCH (08:15)
[2017-09-12] MEDS: Ondansetron ODT 4 MG TAB PO PRN (08:29)
[2017-09-12] MEDS: Cyclobenzaprine 10 MG TAB PO PRN (17:30)
[2017-09-12] MEDS: cefTRIAXone\\ROCEPHIN 2 GM in Sodium Chloride 0.9% 100 ML IVPB SCH (17:31)
[2017-09-12] MEDS: Levemir Flexpen 100 UNITS/ML PEN SC SCH (21:35)
[2017-09-12] MEDS: Zolpidem Tartrate 5 MG TAB PO PRN (22:50)
[2017-09-13] MEDS: Levothyroxine Sodium 25 MCG TAB PO SCH (05:08)
[2017-09-13] MEDS: Levothyroxine Sodium 112 MCG TAB PO SCH (05:08)
[2017-09-13] MEDS: HumaLOG 300 UNITS/3 ML VIAL SC SCH (09:31)
[2017-09-13] MEDS: Calcium Acetate 667 MG CAP PO SCH ×3 (09:36→17:53)
[2017-09-13] MEDS: Folic Acid/Vit B Comp W-C PO SCH (09:36)
[2017-09-13] MEDS: Famotidine 20 MG TAB PO SCH ×2 (09:37→21:12)
[2017-09-13] MEDS: Cyclobenzaprine 10 MG TAB PO PRN (09:37)
[2017-09-13] MEDS: NIFEdipine XL 30 MG TAB PO SCH (09:37)
[2017-09-13] MEDS: Docusate 100 MG CAP PO SCH ×2 (09:38→21:12)
[2017-09-13] MEDS: HYDROcodone/Acetaminophen 10/325 mg Tablet PO PRN (13:00)
--- NOTE | 2017-09-13 15:15 | PRG ---
DATE OF SERVICE: 09/13/2017 SUBJECTIVE: Ms. Nevarez is doing well. Denies any complaints, resting comfortably, tolerating her an tibiotics. OBJECTIVE: VITAL SIGNS: She is afebrile, heart rate is 84, respirations are 21, oxygen saturation 95%, blood pr essure this morning was 201/86, but on recheck 161/77. CARDIOVASCULAR: S1, S2 plus. RESPIRATORY: Vesicular breath sounds heard in all lung malik. ABDOMEN: Soft, nontender, bowel sounds heard in all quadrants. EXTREMITIES: Without cyanosis or clubbing. Chronic stasis dermatitis. Ray amputation in the right foot. IMPRESSION: 1. Right knee septic arthritis, on IV antibiotics. 2. End-stage renal disease, on hemodialysis. 3. Diabetes mellitus type 2, still with fluctuating blood sugars. Her Accu-Cheks have been 327, 124 , 109, 250, 294, and 313. 4. Degenerative joint disease. 5. Hypertension, fluctuating control. PLAN: 1. Continue current medications. 2. Hemodialysis. 3. Monitor blood pressure and adjust medications. 4. DVT and stress ulcer prophylaxis. 5. Decubitus precautions. 6. Physical therapy evaluation and treatment. Discussed with patient in detail. All questions answ ered.
[2017-09-13] MEDS: cefTRIAXone\\ROCEPHIN 2 GM in Sodium Chloride 0.9% 100 ML IVPB SCH (17:53)
[2017-09-13] MEDS: traMADol HCl 50 MG TAB PO PRN (21:12)
[2017-09-13] MEDS: Levemir Flexpen 100 UNITS/ML PEN SC SCH (21:14)
[2017-09-13] MEDS: Zolpidem Tartrate 5 MG TAB PO PRN (22:22)
[2017-09-14] MEDS: HYDROcodone/Acetaminophen 10/325 mg Tablet PO PRN ×2 (04:31→12:18)
[2017-09-14] MEDS: Levothyroxine Sodium 25 MCG TAB PO SCH (05:10)
[2017-09-14] MEDS: Levothyroxine Sodium 112 MCG TAB PO SCH (05:10)
[2017-09-14] MEDS ORDERED: Insulin Regular 300 UNITS/3 ML VIAL ONE (06:14)
[2017-09-14] MEDS ORDERED: Insulin Regular 300 UNITS/3 ML VIAL SC SCH (06:30)
[2017-09-14] MEDS: HumaLOG 300 UNITS/3 ML VIAL SC SCH (08:56)
[2017-09-14] MEDS: Cyclobenzaprine 10 MG TAB PO PRN ×2 (09:08→18:26)
[2017-09-14] MEDS: Folic Acid/Vit B Comp W-C PO SCH (09:09)
[2017-09-14] MEDS: Calcium Acetate 667 MG CAP PO SCH ×3 (09:09→18:25)
[2017-09-14] MEDS: Docusate 100 MG CAP PO SCH ×2 (09:09→21:18)
[2017-09-14] MEDS: Famotidine 20 MG TAB PO SCH ×2 (09:10→21:18)
[2017-09-14] MEDS: NIFEdipine XL 30 MG TAB PO SCH ×2 (09:10→21:20)
--- NOTE | 2017-09-14 15:53 | PRG ---
DATE OF SERVICE: 09/14/2017 SUBJECTIVE: Ms. Nevarez is in discomfort with just lying in bed. Nursing is trying to get her reposi tioned. No other concerns or questions. She is tolerating her medications. OBJECTIVE: VITAL SIGNS: She is afebrile, heart rate is 82, respirations 18, oxygen saturation 96%, blood pressu re was 173/79. CARDIOVASCULAR SYSTEM: S1 and S2 plus. RESPIRATORY SYSTEM: Normal vesicular breath sounds. ABDOMEN: Soft, nontender, bowel sounds heard in all quadrants. EXTREMITIES: Without cyanosis or clubbing. IMPRESSION: 1. Septic arthritis, right knee. 2. End-stage renal disease on hemodialysis. 3. Diabetes mellitus, type 2. 4. Hypertension. 5. Deconditioning. PLAN: 1. Continue current medications. 2. Monitor blood pressure and adjust medications. 3. DVT and stress ulcer prophylaxis. 4. Decubitus precautions. 5. Routine laboratory values. 6. Hemodialysis. 7. Discussed with patient in detail and all questions answered.
[2017-09-14] MEDS: cefTRIAXone\\ROCEPHIN 2 GM in Sodium Chloride 0.9% 100 ML IVPB SCH (18:26)
[2017-09-14] MEDS: traMADol HCl 50 MG TAB PO PRN (21:18)
[2017-09-14] MEDS: Levemir Flexpen 100 UNITS/ML PEN SC SCH (21:38)
[2017-09-14] MEDS ORDERED: HumaLOG 300 UNITS/3 ML VIAL SC SCH (21:45)
[2017-09-14] MEDS: Zolpidem Tartrate 5 MG TAB PO PRN (21:51)
[2017-09-15] MEDS: HYDROcodone/Acetaminophen 10/325 mg Tablet PO PRN ×2 (01:45→21:08)
[2017-09-15] MEDS: Levothyroxine Sodium 25 MCG TAB PO SCH (05:26)
[2017-09-15] MEDS: Levothyroxine Sodium 112 MCG TAB PO SCH (05:26)
[2017-09-15] MEDS: Ondansetron ODT 4 MG TAB PO PRN (06:00)
[2017-09-15] MEDS: Docusate 100 MG CAP PO SCH ×2 (08:09→21:07)
[2017-09-15] MEDS: Calcium Acetate 667 MG CAP PO SCH ×3 (08:09→16:08)
[2017-09-15] MEDS: Famotidine 20 MG TAB PO SCH ×2 (08:09→21:08)
[2017-09-15] MEDS: fentaNYL 50 mcg/hour Patch TD SCH (08:10)
[2017-09-15] MEDS: Folic Acid/Vit B Comp W-C PO SCH (08:11)
[2017-09-15] MEDS: NIFEdipine XL 30 MG TAB PO SCH ×2 (08:12→21:07)
[2017-09-15] MEDS: HumaLOG 300 UNITS/3 ML VIAL SC SCH (08:12)
[2017-09-15] MEDS: traMADol HCl 50 MG TAB PO PRN ×2 (08:14→15:56)
[2017-09-15] MEDS: cefTRIAXone\\ROCEPHIN 2 GM in Sodium Chloride 0.9% 100 ML IVPB SCH (17:38)
[2017-09-15] MEDS: Levemir Flexpen 100 UNITS/ML PEN SC SCH (21:08)
[2017-09-15] MEDS: Zolpidem Tartrate 5 MG TAB PO PRN (22:26)
[2017-09-16] MEDS: Levothyroxine Sodium 112 MCG TAB PO SCH (05:23)
[2017-09-16] MEDS: Levothyroxine Sodium 25 MCG TAB PO SCH (05:23)
[2017-09-16] MEDS: HumaLOG 300 UNITS/3 ML VIAL SC SCH (08:06)
[2017-09-16] MEDS: Calcium Acetate 667 MG CAP PO SCH ×3 (08:06→16:38)
[2017-09-16] MEDS: Famotidine 20 MG TAB PO SCH ×2 (08:06→20:19)
[2017-09-16] MEDS: Docusate 100 MG CAP PO SCH ×2 (08:06→20:19)
[2017-09-16] MEDS: NIFEdipine XL 30 MG TAB PO SCH ×2 (08:06→20:20)
[2017-09-16] MEDS: Folic Acid/Vit B Comp W-C PO SCH (08:06)
[2017-09-16] MEDS: traMADol HCl 50 MG TAB PO PRN ×2 (08:07→16:38)
[2017-09-16] MEDS: Cyclobenzaprine 10 MG TAB PO PRN ×2 (08:57→20:31)
--- NOTE | 2017-09-16 13:54 | PRG ---
DATE OF SERVICE: 09/16/2017 SUBJECTIVE: Ms. Nevarez is doing well. Denies any complaints, resting comfortably, feeling stronger. Denies any concerns or questions. OBJECTIVE: VITAL SIGNS: She is afebrile, heart rate is 79, respirations are 21, oxygen saturation 94% on room a ir, blood pressure 135/61. CARDIOVASCULAR: S1, S2 plus. RESPIRATORY: Normal vesicular breath sounds. ABDOMEN: Soft, nontender, bowel sounds heard in all quadrants. EXTREMITIES: Without cyanosis or clubbing. Chronic stasis dermatitis. 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 IMPRESSION: 1. Septic arthritis, right knee, requiring IV antibiotics. 2. End-stage renal disease on hemodialysis. 3. Diabetes mellitus type 2, fluctuating control. 4. Hypertension, well controlled. 5. Deconditioning, slow improvement. PLAN: 1. Continue current medications, last day of antibiotic is September. 2. Continue hemodialysis. 3. Deep venous thrombosis and stress ulcer prophylaxis. 4. Decubitus precautions. 5. Routine laboratory values. 6. Nutritional support. 7. Dr. Kate Kauffman covering for me from now until September and Dr. Murray Lazo will assume c are after that.
[2017-09-16] MEDS: cefTRIAXone\\ROCEPHIN 2 GM in Sodium Chloride 0.9% 100 ML IVPB SCH (18:16)
[2017-09-16] MEDS: Levemir Flexpen 100 UNITS/ML PEN SC SCH (20:24)
[2017-09-16] MEDS: Zolpidem Tartrate 5 MG TAB PO PRN (22:12)
[2017-09-17] MEDS: HYDROcodone/Acetaminophen 10/325 mg Tablet PO PRN ×3 (03:14→21:31)
[2017-09-17] MEDS: Levothyroxine Sodium 25 MCG TAB PO SCH (05:53)
[2017-09-17] MEDS: Levothyroxine Sodium 112 MCG TAB PO SCH (05:53)
[2017-09-17] MEDS: HumaLOG 300 UNITS/3 ML VIAL SC SCH (09:12)
[2017-09-17] MEDS: NIFEdipine XL 30 MG TAB PO SCH ×2 (09:24→21:30)
[2017-09-17] MEDS: Docusate 100 MG CAP PO SCH ×2 (09:24→21:30)
[2017-09-17] MEDS: Cyclobenzaprine 10 MG TAB PO PRN ×2 (09:24→17:52)
[2017-09-17] MEDS: Calcium Acetate 667 MG CAP PO SCH ×3 (09:24→17:50)
[2017-09-17] MEDS: Folic Acid/Vit B Comp W-C PO SCH (09:25)
[2017-09-17] MEDS: Famotidine 20 MG TAB PO SCH ×2 (09:25→21:30)
[2017-09-17] MEDS: cefTRIAXone\\ROCEPHIN 2 GM in Sodium Chloride 0.9% 100 ML IVPB SCH (17:52)
[2017-09-17] MEDS: Levemir Flexpen 100 UNITS/ML PEN SC SCH (21:33)
[2017-09-17] MEDS: Zolpidem Tartrate 5 MG TAB PO PRN (21:33)
--- NOTE | 2017-09-17 22:32 | PRG ---
DATE OF SERVICE: 09/17/2017 HISTORY OF PRESENT ILLNESS: Ms. Nevarez is a very pleasant 72-year-old white female that presented to [facility] with severe right pain. She has septic arthritis, which was drained. Unf ortunately, grew out Serratia, she was placed on Rocephin and gentamicin. She eventually was transfe rred to [facility] for continued physical therapy, occupational therapy, and dialysis 3 times a week. She has comorbidities of diabetes type 2, peripheral neuropathy, diabetic neuropath y, and end-stage renal disease. SUBJECTIVE: Patient states she is doing well, but she still thinks her leg is infected. She states it is warm, but is not warmer than the other leg. We are still battling with her diabetes. OBJECTIVE: VITAL SIGNS: Blood pressure this morning was 151/70, pulse 79, respirations 20, O2 sat 95% on room a ir, T-max 97.2. Sugars reveal fasting this morning 132, before lunch 62, before supper 130. GENERAL: This is a well-developed, well-nourished, very pleasant white female in no apparent distres s at this time. HEENT: Reveals normocephalic, nontraumatic cranium. Pupils are equally round and reactive. Extraoc ular muscles intact. Nose and throat are clear and moist. NECK: Supple without mass, nodes, or bruits. CHEST: Clear to auscultation. No rales, rhonchi, wheezes, or cough is heard. CARDIOVASCULAR: Reveals a regular rate and rhythm without murmurs, gallops, or rubs. ABDOMEN: Soft, nontender without organomegaly, normal bowel sounds are noted. No rebound or guardin g is noted. : Deferred. EXTREMITIES: Reveal no clubbing, cyanosis, or edema. Right knee incision continues to look actually pretty good, does not draining. It is not red or warm. IMPRESSION: 1. Septic arthritis, right knee. 2. End-stage renal disease on dialysis, 3 times a week. 3. Diabetes, still out of control. 4. Diabetic neuropathy. 5. Diabetic nephropathy. 6. Serratia infection of right knee. 7. Chronic pain followed by Dr. Yeung, Dr. Arturo Louie. 8. History of recurrent urinary tract infections. 9. Deep venous thrombosis by history. 10. Hypertension. 11. Generalized weakness. PLAN: 1. Continue present medications, last day of antibiotics is 09/22. 2. Continue dialysis. 3. Stress ulcer prophylaxis. 4. DVT prophylaxis. 5. Decubitus precautions. 6. Continue to follow routine labs. 7. Nutritional support.
[2017-09-18] MEDS: Cyclobenzaprine 10 MG TAB PO PRN ×2 (01:41→16:01)
[2017-09-18] MEDS: Levothyroxine Sodium 112 MCG TAB PO SCH (06:26)
[2017-09-18] MEDS: Levothyroxine Sodium 25 MCG TAB PO SCH (06:28)
[2017-09-18] MEDS: traMADol HCl 50 MG TAB PO PRN ×2 (07:10→12:10)
[2017-09-18] MEDS: Calcium Acetate 667 MG CAP PO SCH ×3 (07:11→17:15)
[2017-09-18] MEDS: Folic Acid/Vit B Comp W-C PO SCH (08:15)
[2017-09-18] MEDS: Famotidine 20 MG TAB PO SCH ×2 (08:15→21:45)
[2017-09-18] MEDS: Ondansetron ODT 4 MG TAB PO PRN (08:15)
[2017-09-18] MEDS: NIFEdipine XL 30 MG TAB PO SCH ×2 (08:15→21:46)
[2017-09-18] MEDS: Docusate 100 MG CAP PO SCH ×2 (08:15→21:47)
[2017-09-18] MEDS: HYDROcodone/Acetaminophen 10/325 mg Tablet PO PRN ×3 (08:16→23:22)
[2017-09-18] MEDS: fentaNYL 50 mcg/hour Patch TD SCH (08:17)
[2017-09-18] MEDS: HumaLOG 300 UNITS/3 ML VIAL SC SCH (08:22)
[2017-09-18] MEDS: cefTRIAXone\\ROCEPHIN 2 GM in Sodium Chloride 0.9% 100 ML IVPB SCH (17:52)
[2017-09-18] MEDS: Levemir Flexpen 100 UNITS/ML PEN SC SCH (21:47)
[2017-09-18] MEDS: Zolpidem Tartrate 5 MG TAB PO PRN (21:51)
--- NOTE | 2017-09-18 21:54 | PRG ---
DATE OF SERVICE: 09/18/2017 HISTORY OF PRESENT ILLNESS: Ms. Nevarez is a very pleasant 72-year-old white female that presented to [facility] with severe right knee pain. She has septic arthritis which was drained a nd unfortunately grew out serratia. She was placed on Rocephin and gentamicin. Eventually, she was transferred to [facility] for continued PT, OT, and dialysis 3 times a week. She has comorbidities of diabetes type 2, peripheral neuropathy, diabetic neuropathy, end-stage renal diseas e. The patient states she is doing well, has no complaints today. PHYSICAL EXAMINATION: VITAL SIGNS: Blood pressure this morning was slightly elevated at 156/67, pulse 81, respirations 20, O2 sat 98% on room air, T-max 96.1. GENERAL: This is a well-developed, well-nourished, very pleasant white female in no apparent distres s at this time. HEENT: Reveals normocephalic, nontraumatic cranium. Pupils equal, round, and reactive. Extraocular movements are intact. Nose and throat are clear and moist. NECK: Supple, without mass, nodes or bruits. CHEST: Clear to auscultation. No rales, rhonchi, wheezes or cough is heard. CARDIOVASCULAR: Reveals a regular rate and rhythm without murmurs, gallops or rubs. ABDOMEN: Soft, nontender, without organomegaly. Normal bowel sounds are noted. No rebound or guard ing is noted. : Deferred. EXTREMITIES: Reveal no clubbing, cyanosis or edema. Right knee incision continues to look pretty go od, not draining. It is not red, it is not hot, not warm. IMPRESSION: 1. Septic arthritis, right knee. 2. End-stage renal disease on dialysis 3 times a week. 3. Diabetes, still fluctuates a lot the low of 42 and a high of 173 today. 4. Diabetic neuropathy. 5. Diabetic nephropathy. 6. Serratia infection of the right knee. 7. Chronic pain followed by Dr. Yeung, Dr. Arturo Louie. 8. History of recurrent urinary tract infection. 9. Deep venous thrombosis by history. 10. Hypertension. 11. Generalized weakness. PLAN: 1. Continue to monitor the patient's diabetes with Accu-Cheks a.c. and at bedtime. 2. Labs tomorrow morning. 3. Continue present meds last day of antibiotics from 07/2001. 4. Continue dialysis 3 times a week. 5. Stress ulcer prophylaxis. 6. Deep venous thrombosis prophylaxis. 7. Decubitus precautions. 8. Follow up routine labs tomorrow. 9. Nutrition support.
[2017-09-19] MEDS: Levothyroxine Sodium 25 MCG TAB PO SCH (05:44)
[2017-09-19] MEDS: Levothyroxine Sodium 112 MCG TAB PO SCH (05:44)
[2017-09-19 06:40] LABS: #Eosinphils 0.1 thou/uL (0.0-0.7); #Lymphocytes 1.1 thou/uL (1.20-3.40); #Monocytes 0.5 thou/uL (0.11-0.59); #Neutrophils 5.8 thou/uL (1.40-6.50); %Basophils 0.5 % (0.0-1.0); %Eosinophils 1.1 % (0.0-10.0); %Lymphocytes 14.4 % (21.0-51.0); %Monocytes 6.5 % (0.0-10.0); %Neutrophils 77.5 % (42.0-75.0); Hemoglobin 10.1 g/dL (12.0-16.0); Mean Corpuscular Volume 99.8 fl (81.0-99.0); Mean Platelet Volume 5.2 fL (7.4-10.4); Platelet Count 167 thou/uL (130-400); RBC Distribution Width 15.1 % (11.5-14.5); Red Blood Cell (RBC) Count 3.25 mill/uL (4.20-5.40); White Blood Cell (WBC) Count 7.5 thou/uL (4.8-10.8)
[2017-09-19 07:05] LABS: ALT (SGPT) 8 U/L (8-55); AST (SGOT) 15 U/L (5-34); Albumin 2.9 g/dL (3.4-4.8); Alkaline Phosphatase 87 U/L (40-150); Anion Gap 15 mmol/L (10-20); BUN (Urea Nitrogen) 48 mg/dL (9.8-20.1); Bilirubin, Total 0.2 mg/dL (0.2-1.2); Calc. Creatinine Clearance 20 mL/min (70-130); Calcium 9.9 mg/dL (7.8-10.44); Carbon Dioxide 30 mmol/L (23-31); Chloride 98 mmol/L (98-107); Estimated GFR-MDRD 12; Globulin 5.5 g/dL (2.4-3.5); Potassium 4.5 mmol/L (3.5-5.1); Protein, Total 8.4 g/dL (6.0-8.3); Sodium 138 mmol/L (136-145)
[2017-09-19] MEDS: traMADol HCl 50 MG TAB PO PRN ×2 (08:01→20:35)
[2017-09-19] MEDS: Famotidine 20 MG TAB PO SCH ×2 (08:02→20:34)
[2017-09-19] MEDS: Folic Acid/Vit B Comp W-C PO SCH (08:02)
[2017-09-19] MEDS: Calcium Acetate 667 MG CAP PO SCH ×4 (08:02→16:54)
[2017-09-19] MEDS: Docusate 100 MG CAP PO SCH ×2 (08:02→20:34)
[2017-09-19] MEDS: NIFEdipine XL 30 MG TAB PO SCH ×2 (08:05→20:33)
[2017-09-19] MEDS: HumaLOG 300 UNITS/3 ML VIAL SC SCH (08:05)
[2017-09-19 08:20] LABS: Glucose 58 mg/dL (83-110)
[2017-09-19 11:20] LABS: CRP (Inflammatory) 8.59 mg/dL (= or < 0.5)
[2017-09-19] MEDS: HYDROcodone/Acetaminophen 10/325 mg Tablet PO PRN (15:16)
[2017-09-19] MEDS: Ondansetron ODT 4 MG TAB PO PRN (15:19)
[2017-09-19] MEDS: cefTRIAXone\\ROCEPHIN 2 GM in Sodium Chloride 0.9% 100 ML IVPB SCH (17:34)
[2017-09-19] MEDS: Levemir Flexpen 100 UNITS/ML PEN SC SCH (20:36)
[2017-09-19] MEDS: Zolpidem Tartrate 5 MG TAB PO PRN (21:49)
--- NOTE | 2017-09-20 00:54 | PRG ---
DATE OF SERVICE: 09/19/2017 HISTORY OF PRESENT ILLNESS: Ms. Nevarez is a very pleasant 72-year-old white female that presented to the emergency room with severe right knee pain. She was found to have a septic arthritis and was dr huang and it grew out serratia. She was placed on Rocephin and gentamicin and eventually was transfe rred to [facility] for continued antibiotics and physical therapy and occupational th erapy and dialysis 3 times a week. The patient states she is doing well. She does not have a lot of pain today. OBJECTIVE: VITAL SIGNS: Today reveal blood pressure this morning is 131/60, pulse 81-77, respirations 20, O2 sa turation 97% on room air. T-max is 96.7. LABORATORY DATA: CBC reveals white count this morning 7500, hemoglobin 10.1, hematocrit 32.4, platel et count is 167,000. Electrolytes reveal sodium 138, potassium 4.5, chloride 98, carbon dioxide 30 with a creatinine of 3. 69, which is much improved over her 4.59 last week. CRP is also noted to be down to 8.59 which is im proved over 29.32 a couple of weeks ago. PHYSICAL EXAMINATION: GENERAL: This is a well-developed, well-nourished, very pleasant white female in no apparent distres s at this time. HEENT: Reveals normocephalic, nontraumatic cranium. Pupils are equally round and reactive. Extraoc ular movements are intact. Nose and throat are slightly dry. NECK: Supple, without mass, nodes or bruits. CHEST: Clear to auscultation. No rales, rhonchi or wheezes are heard. CARDIOVASCULAR: Reveals a regular rate and rhythm without murmurs, gallops or rubs. ABDOMEN: Soft, nontender, without organomegaly, normal bowel sounds are noted. No rebound or guardi ng is noted. : Deferred. EXTREMITIES: Reveal no clubbing, cyanosis or edema. Right knee incision continues to look good. It is not red, not hot, not draining, not warm. IMPRESSION: 1. Septic arthritis of the right knee. 2. End-stage renal disease on dialysis 3 times a week. 3. Diabetes still fluctuating a lot. 4. Diabetic neuropathy. 5. Diabetic nephropathy. 6. Serratia infection of the right knee. 7. Chronic pain followed by Dr. Adrien Yeung, Dr. Arturo Louie. 8. History of recurrent urinary tract infection. 9. Deep venous thrombosis by history. 10. Hypertension. 11. Generalized weakness. PLAN: 1. Continue to monitor the patient's blood pressure. 2. Continue to monitor the patient's diabetes with Accu-Cheks a.c. and at bedtime. 3. Continue dialysis 3 times a week. 4. Stress ulcer prophylaxis. 5. DVT prophylaxis. 6. Decubitus precautions. 7. Nutritional support.
[2017-09-20] MEDS: Levothyroxine Sodium 25 MCG TAB PO SCH (05:31)
[2017-09-20] MEDS: Levothyroxine Sodium 112 MCG TAB PO SCH (05:31)
[2017-09-20] MEDS: Ondansetron ODT 4 MG TAB PO PRN (05:49)
[2017-09-20] MEDS: Calcium Acetate 667 MG CAP PO SCH ×3 (08:00→17:19)
[2017-09-20] MEDS: Famotidine 20 MG TAB PO SCH ×2 (08:01→21:23)
[2017-09-20] MEDS: HumaLOG 300 UNITS/3 ML VIAL SC SCH (08:01)
[2017-09-20] MEDS: Docusate 100 MG CAP PO SCH ×2 (08:01→21:23)
[2017-09-20] MEDS: Folic Acid/Vit B Comp W-C PO SCH (08:01)
[2017-09-20] MEDS: NIFEdipine XL 30 MG TAB PO SCH ×2 (08:02→21:24)
[2017-09-20] MEDS: traMADol HCl 50 MG TAB PO PRN ×2 (08:03→16:04)
[2017-09-20] MEDS: Cyclobenzaprine 10 MG TAB PO PRN (16:05)
--- NOTE | 2017-09-20 16:35 | PRG ---
DATE OF SERVICE: 09/20/2017 DATE OF ADMISSION: 09/07/2017 Ms. Nevarez is a very pleasant 72-year-old white female who presented to the emergency room with sever e right knee pain. Unfortunately, she had septic arthritis. It was drained and cultured and grew ou t serratia. She was placed on Rocephin and gentamicin and transferred to [facility] for continued antibiotics which will finish on September 22. She is also here for physical therap y, occupational therapy, and dialysis 3 times a week. SUBJECTIVE: The patient has no complaints today. She states she is doing well. PHYSICAL EXAMINATION: VITAL SIGNS: Reveal blood pressure today was 158/68, pulse 70, respirations 18, O2 sat 94% on room a ir, T-max 97.4. GENERAL: This is a well-developed, well-nourished, very pleasant white female in no apparent distres s at this time. HEENT: Reveals normocephalic, nontraumatic cranium. Pupils are equal, round, and reactive. Extraoc ular movements are intact. Nose and throat are slightly dry, but clear. NECK: Supple, without mass, nodes or bruits. CHEST: Clear to auscultation. No rales, rhonchi or wheezes are heard. HEART: Reveals a regular rate and rhythm without murmurs, gallops or rubs. ABDOMEN: Soft and nontender without organomegaly, normal bowel sounds are noted. No rebound or guar ding is noted. GENITOURINARY: Deferred. EXTREMITIES: Reveal no clubbing, cyanosis or edema. Right knee incision continues to look good, not red, not warm, not draining. IMPRESSION: 1. Septic arthritis. 2. End-stage renal disease on dialysis 3 times a week. 3. Diabetes, still fluctuating. 4. Diabetic neuropathy. 5. Serratia infection of the right knee. 6. Diabetic nephropathy. 7. Chronic pain followed by Dr. Yeung and Dr. Louie. 8. History of recurrent urinary tract infections. 9. History of deep venous thrombosis. 10. Hypertension. 11. Generalized weakness. PLAN: 1. Continue antibiotics until that course on 09/22/2017. 2. Continue to monitor the patient's renal indices. 3. Continue to monitor the patient's Accu-Cheks a.c. and at bedtime. 4. Stress ulcer prophylaxis. 5. DVT prophylaxis. 6. Decubitus precautions. 7. Physical therapy and occupational therapy.
[2017-09-20] MEDS: cefTRIAXone\\ROCEPHIN 2 GM in Sodium Chloride 0.9% 100 ML IVPB SCH (18:39)
[2017-09-20] MEDS: HYDROcodone/Acetaminophen 10/325 mg Tablet PO PRN (21:24)
[2017-09-20] MEDS: Levemir Flexpen 100 UNITS/ML PEN SC SCH (21:27)
[2017-09-20] MEDS: Zolpidem Tartrate 5 MG TAB PO PRN (22:13)
[2017-09-21 05:36] VITALS: BMI 28.0
[2017-09-21] MEDS: Levothyroxine Sodium 25 MCG TAB PO SCH (05:39)
[2017-09-21] MEDS: Levothyroxine Sodium 112 MCG TAB PO SCH (05:39)
[2017-09-21] MEDS: Ondansetron ODT 4 MG TAB PO PRN (05:39)
[2017-09-21] MEDS: fentaNYL 50 mcg/hour Patch TD SCH (08:31)
[2017-09-21] MEDS: Famotidine 20 MG TAB PO SCH ×2 (08:34→20:48)
[2017-09-21] MEDS: Calcium Acetate 667 MG CAP PO SCH ×3 (08:34→17:19)
[2017-09-21] MEDS: Folic Acid/Vit B Comp W-C PO SCH (08:34)
[2017-09-21] MEDS: Docusate 100 MG CAP PO SCH ×2 (08:34→20:48)
[2017-09-21] MEDS: HumaLOG 300 UNITS/3 ML VIAL SC SCH (08:35)
[2017-09-21] MEDS: traMADol HCl 50 MG TAB PO PRN ×2 (08:35→20:48)
[2017-09-21] MEDS: NIFEdipine XL 30 MG TAB PO SCH ×2 (08:35→20:48)
[2017-09-21] MEDS: cefTRIAXone\\ROCEPHIN 2 GM in Sodium Chloride 0.9% 100 ML IVPB SCH (18:32)
[2017-09-21] MEDS: Levemir Flexpen 100 UNITS/ML PEN SC SCH (20:49)
[2017-09-21] MEDS: Zolpidem Tartrate 5 MG TAB PO PRN (22:08)
--- NOTE | 2017-09-22 00:05 | PRG ---
DATE OF SERVICE: 09/21/2017 HISTORY OF PRESENT ILLNESS: Ms. Nevarez is a very pleasant 72-year-old white female, who had severe r ight knee pain. She presented to the emergency room and found to have a septic arthritis. She was t aken to the surgical suite and had it drained and cultured and grew out serratia. She was initially started on Rocephin and gentamicin and transferred to [facility] to continue the anti biotics, would stop or finish tomorrow. She is also here for PT, OT and dialysis 3 times a week. SUBJECTIVE: The patient states she is doing well and has no complaints today. She knows that she fi nishes her antibiotics and wants to know when she can be arranged and transferred back to the [facility]. VITAL SIGNS: Blood pressure was 140/65, pulse 78 to 83, respirations 18 to 19 with O2 sat of 95% to 97% on room air, T-max 97.3. ESR sed rate was noted to be greater than 120 on the 30. Patient's C-reactive protein was down to 8.59 and previously on 08/21/2017, which is a month ago was 29.52. PHYSICAL EXAMINATION: GENERAL: This is a well-developed, well-nourished, pleasant white female in no apparent distress at this time. HEENT: Reveals normocephalic, nontraumatic cranium. Pupils equally round and reactive. Extraocular movements are intact. Nose and throat are slightly dry, but clear. NECK: Supple without mass, nodes or bruits. CHEST: Clear to auscultation. No rales, rhonchi, wheezes or cough is heard. HEART: Reveals a regular rate and rhythm without murmurs, gallops or rubs. ABDOMEN: Soft, nontender, without organomegaly. Normal bowel sounds are noted. No rebound or guard ing is noted. : Deferred. EXTREMITIES: Reveals no clubbing, cyanosis or edema. Right knee incision continues to look good, no t red, not warm, not draining. IMPRESSION: 1. Septic arthritis finishes her antibiotics tomorrow. 2. End-stage renal disease, on dialysis 3 times a week. 3. Diabetes. 4. Diabetic neuropathy. 5. Serratia infection of the right knee. She will be controlled. 6. Diabetic nephropathy. 7. Chronic pain followed by Dr. Yeung and Dr. Louie. 8. History of recurrent urinary tract infections. 9. History of deep vein thrombosis. 10. Hypertension. 11. Generalized weakness. PLAN: 1. The patient will finish her antibiotic course tomorrow. 2. Continue to monitor the patient's renal indices. 3. Continue to monitor the patient Accu-Cheks before meals at bedtime. 4. Stress ulcer prophylaxis. 5. DVT prophylaxis. 6. Decubitus precautions. 7. Continue PT and OT. 8. Dr. Gutierrez will be back tonight after 9 o'clock.
[2017-09-22] MEDS: Levothyroxine Sodium 112 MCG TAB PO SCH (06:04)
[2017-09-22] MEDS: Levothyroxine Sodium 25 MCG TAB PO SCH (06:04)
[2017-09-22] MEDS: Ondansetron ODT 4 MG TAB PO PRN (06:08)
[2017-09-22] MEDS ORDERED: NIFEdipine XL 30 MG TAB ONE ×2 (07:38)
[2017-09-22] MEDS: HYDROcodone/Acetaminophen 10/325 mg Tablet PO PRN ×2 (08:11→17:04)
[2017-09-22] MEDS: NIFEdipine XL 30 MG TAB PO SCH ×2 (08:14→21:25)
[2017-09-22] MEDS: HumaLOG 300 UNITS/3 ML VIAL SC SCH (08:14)
[2017-09-22] MEDS: Calcium Acetate 667 MG CAP PO SCH ×3 (08:15→17:09)
[2017-09-22] MEDS: Docusate 100 MG CAP PO SCH ×2 (08:15→21:25)
[2017-09-22] MEDS: Folic Acid/Vit B Comp W-C PO SCH (08:16)
[2017-09-22] MEDS: Famotidine 20 MG TAB PO SCH ×2 (08:16→21:25)
[2017-09-22] MEDS ORDERED: cefTRIAXone\\ROCEPHIN 2 GM in Sodium Chloride 0.9% 100 ML IVPB SCH (18:30)
--- NOTE | 2017-09-22 20:45 | PRG ---
DATE OF SERVICE: 09/22/2017 SUBJECTIVE: The patient feels well, lying in the bed, is finishing her antibiotics today. Denying a ny abdominal pain, shortness of breath, chest pain. Still having pain in her left leg with inability to maintain ADLs. She however is asking if she can be transferred to [facility] or continue dialysis twice weekly under the care of Dr. Ruelas as he has discussed this with her n ephrologist, Dr. Winters. She also is requesting to have her Fan catheter removed by Dr. Ab rangel. OBJECTIVE: VITAL SIGNS: Blood pressure is 154/70, temperature 97.5, pulse 78, respirations 18, O2 sat is 97%. LUNGS: Clear. CARDIAC: Regular rhythm. ABDOMEN: Soft and nontender. EXTREMITIES: Right leg shows healing well, but there is concern as the sed rate is still greater toni n 120. LABORATORY DATA: White count 7500, hematocrit 32, hemoglobin 10. Accu-Chek is very labile. ASSESSMENT: 1. Septic arthritis. Appears to be healing well, but concern because of persistent elevation of sed rate to 120 and we will obtain CRP. 2. Recurrent urinary tract infection. We will repeat in the a.m. 3. End-stage renal disease, on hemodialysis twice weekly and we will discuss outpatient dialysis wit h sand polisher, Dr. Winters and Dr. Ruelas. PLAN: CRP in the a.m. Urinalysis and urine culture in the a.m. Discuss outpatient dialysis with Dr Teddy Ruelas and Dr. Winters. Discuss removal of Fan catheter by Dr. Castro. Arrange for transfer, hopefully to [facility] under the care of Dr. Sebastian Valero.
[2017-09-22] MEDS: Levemir Flexpen 100 UNITS/ML PEN SC SCH (21:25)
[2017-09-22] MEDS: Zolpidem Tartrate 5 MG TAB PO PRN (21:26)
[2017-09-22] MEDS: traMADol HCl 50 MG TAB PO PRN (21:26)
[2017-09-23] MEDS: Levothyroxine Sodium 112 MCG TAB PO SCH (05:10)
[2017-09-23] MEDS: Levothyroxine Sodium 25 MCG TAB PO SCH (05:10)
[2017-09-23] MEDS ORDERED: Levemir Flexpen 100 UNITS/ML PEN SC SCH (07:19)
[2017-09-23] MEDS: HumaLOG 300 UNITS/3 ML VIAL SC SCH (08:52)
[2017-09-23] MEDS: Famotidine 20 MG TAB PO SCH ×2 (09:04→21:46)
[2017-09-23] MEDS: Calcium Acetate 667 MG CAP PO SCH ×3 (09:05→17:33)
[2017-09-23] MEDS: Folic Acid/Vit B Comp W-C PO SCH (09:05)
[2017-09-23] MEDS: NIFEdipine XL 30 MG TAB PO SCH ×2 (09:05→21:47)
[2017-09-23] MEDS: Docusate 100 MG CAP PO SCH ×2 (09:05→21:46)
[2017-09-23] MEDS: HYDROcodone/Acetaminophen 10/325 mg Tablet PO PRN (09:06)
[2017-09-23] MEDS: Ondansetron ODT 4 MG TAB PO PRN (13:08)
--- NOTE | 2017-09-23 19:05 | PRG ---
DATE OF SERVICE: 09/23/2017 SUBJECTIVE: The patient feels well with minimal knee pain, no shortness of breath, no chest pain, pa lpitation. She is asking when she can be transferred to [place]. Had no fever, chills or cough . OBJECTIVE: VITAL SIGNS: Showed her blood pressure has been elevated today and yesterday, but was normal prior t o this. Her pulse is 87, respirations 20, O2 sats 98% on room air. LUNGS: Clear. CARDIAC: Shows regular rhythm. EXTREMITIES: Right knee shows minimal swelling, but with no erythema, warmth, and decreased tenderne ss. LABORATORY DATA: Shows her sed rate is greater than 120 several days ago and CRP was repeated today which showed a still elevated to 6.71. ASSESSMENT: 1. Resolving septic arthritis, off antibiotics. No fever, chills but persistent elevated inflammato ry markers. 2. Chronic renal disease, on dialysis twice weekly ready for outpatient. 3. Degenerative disk disease with chronic pain, controlled with fentanyl patch being followed by Dr. Yeung. 4. Severe deconditioning with inability to maintain ADLs. 5. Attempt to draw blood cultures. PLAN: Obtain cultures from the Fan catheter and schedule dialysis catheter culture. Attempt to transfer to [place] to follow with Dr. Valero and continue dialysis in [place].
[2017-09-23] MEDS: Zolpidem Tartrate 5 MG TAB PO PRN (21:49)
[2017-09-23] MEDS: traMADol HCl 50 MG TAB PO PRN (21:50)
[2017-09-24] MEDS: Levothyroxine Sodium 112 MCG TAB PO SCH (05:39)
[2017-09-24] MEDS: Levothyroxine Sodium 25 MCG TAB PO SCH (05:39)
[2017-09-24] MEDS: Cyclobenzaprine 10 MG TAB PO PRN (05:39)
[2017-09-24] MEDS: Calcium Acetate 667 MG CAP PO SCH ×3 (08:25→17:11)
[2017-09-24] MEDS: fentaNYL 50 mcg/hour Patch TD SCH (08:26)
[2017-09-24] MEDS: Famotidine 20 MG TAB PO SCH ×2 (08:26→20:44)
[2017-09-24] MEDS: Carvedilol 6.25 MG TAB PO SCH ×2 (08:26→17:12)
[2017-09-24] MEDS: Docusate 100 MG CAP PO SCH ×2 (08:26→20:44)
[2017-09-24] MEDS: NIFEdipine XL 30 MG TAB PO SCH ×2 (08:28→20:44)
[2017-09-24] MEDS: Folic Acid/Vit B Comp W-C PO SCH (08:28)
[2017-09-24] MEDS: HumaLOG 300 UNITS/3 ML VIAL SC SCH (08:28)
[2017-09-24] MEDS: traMADol HCl 50 MG TAB PO PRN ×3 (08:29→22:03)
[2017-09-24] MEDS: Ondansetron ODT 4 MG TAB PO PRN (14:00)
[2017-09-24] MEDS: Levemir Flexpen 100 UNITS/ML PEN SC SCH (20:45)
[2017-09-24] MEDS: Zolpidem Tartrate 5 MG TAB PO PRN (22:03)
--- NOTE | 2017-09-24 23:18 | PRG ---
DATE OF SERVICE: 09/24/2017 SUBJECTIVE: The patient is awake and alert with no complaints of chest pain or shortness of breath. Had persistent, but decreasing right knee pain. I discussed the fact that she cannot have dialysis in [place] as no chair is available and needs to be transported back and forth from [place] to her previous dialysis [facility], and she agreed to this. I discussed the case with Dr. Cely Valero, who agreed to accept her at [facility] if they would accept her. OBJECTIVE: VITAL SIGNS: Blood pressure is still elevated at 173/74, pulse 71, respirations 20, O2 sat is 97%, t emperature of 97. LUNGS: Clear. CARDIAC: Regular rhythm. ABDOMEN: Soft and nontender. EXTREMITIES: Right knee is swollen with no erythema, warmth, or tenderness. LABORATORY DATA: Accu-Chek is still elevated from 180 to 343. ASSESSMENT: 1. Resolved septic arthritis, off antibiotics for 2 days with only problem with elevated sed rate an d CRP, but with negative blood cultures pending. 2. Labile diabetes with inadequate control. No hypoglycemia. 3. Chronic pain, back and legs, on fentanyl patch and tramadol, being followed by Dr. Yeung. 4. Severe chronic degenerative joint disease of the right knee. 5. History of deep venous thrombosis, no evidence for recurrence. 6. Hypertension, uncontrolled at this time. PLAN: 1. Increase carvedilol to 25 mg twice daily. Discussed transfer with [facility] and hopefully have t hem accept the patient. 2. We can continue fentanyl patch for her chronic pain. 3. Increase Levemir to 25 units subcu at bedtime. Continue sliding scale.
[2017-09-25] MEDS: Levothyroxine Sodium 112 MCG TAB PO SCH (05:08)
[2017-09-25] MEDS: Levothyroxine Sodium 25 MCG TAB PO SCH (05:09)
[2017-09-25] MEDS: Calcium Acetate 667 MG CAP PO SCH ×3 (08:21→16:59)
[2017-09-25] MEDS: Carvedilol 25 MG TAB PO SCH ×2 (08:22→17:00)
[2017-09-25] MEDS: Docusate 100 MG CAP PO SCH ×2 (08:22→20:19)
[2017-09-25] MEDS: NIFEdipine XL 30 MG TAB PO SCH ×2 (08:22→20:19)
[2017-09-25] MEDS: Famotidine 20 MG TAB PO SCH ×2 (08:22→20:19)
[2017-09-25] MEDS: Folic Acid/Vit B Comp W-C PO SCH (08:23)
[2017-09-25] MEDS: traMADol HCl 50 MG TAB PO PRN ×3 (08:26→20:18)
[2017-09-25] MEDS: HumaLOG 300 UNITS/3 ML VIAL SC SCH (08:28)
[2017-09-25] MEDS: Levemir Flexpen 100 UNITS/ML PEN SC SCH (20:19)
[2017-09-25] MEDS: Zolpidem Tartrate 5 MG TAB PO PRN (20:19)
[2017-09-25] MEDS: Cyclobenzaprine 10 MG TAB PO PRN (23:57)
[2017-09-26] MEDS: Ondansetron ODT 4 MG TAB PO PRN (03:30)
[2017-09-26] MEDS: Levothyroxine Sodium 112 MCG TAB PO SCH (05:52)
[2017-09-26] MEDS: Levothyroxine Sodium 25 MCG TAB PO SCH (05:52)
[2017-09-26] MEDS: Calcium Acetate 667 MG CAP PO SCH ×4 (08:22→18:27)
[2017-09-26] MEDS: Docusate 100 MG CAP PO SCH ×2 (08:22→20:57)
[2017-09-26] MEDS: Folic Acid/Vit B Comp W-C PO SCH (08:22)
[2017-09-26] MEDS: Carvedilol 25 MG TAB PO SCH ×2 (08:23→18:28)
[2017-09-26] MEDS: NIFEdipine XL 30 MG TAB PO SCH ×2 (08:25→20:57)
[2017-09-26] MEDS: Famotidine 20 MG TAB PO SCH ×2 (08:25→20:57)
[2017-09-26] MEDS: HumaLOG 300 UNITS/3 ML VIAL SC SCH (08:27)
[2017-09-26] MEDS: HYDROcodone/Acetaminophen 10/325 mg Tablet PO PRN (16:30)
[2017-09-26] MEDS: traMADol HCl 50 MG TAB PO PRN (20:58)
[2017-09-26] MEDS: Levemir Flexpen 100 UNITS/ML PEN SC SCH (21:00)
--- NOTE | 2017-09-26 21:54 | PRG ---
DATE OF SERVICE: 09/26/2017 SUBJECTIVE: The patient feels well, visiting with family, friends. No complaints of chest pain, candace rtness of breath, palpitations, orthopnea, weakness, dizziness. OBJECTIVE: VITAL SIGNS: Blood pressure is improved to 146/66 this morning, was elevated to 185/84 this afternoo n. Temperature is 97, pulse 68, respirations 18, O2 sats 98%. Accu-Cheks range from 90 to 399 and w ill continue on this dose of Levemir and sliding scale. LUNGS: Clear. CARDIAC: Showed regular rhythm. EXTREMITIES: Right knee shows no erythema, warmth or tenderness. Blood cultures are no growth at 48 hours. Urine culture is no growth final report. ASSESSMENT: 1. Resolved septic arthritis with no evidence of recurrent infection on blood and urine and will hav e Fan catheter removed and tip cultured and dialysis cultured at dialysis. 2. Labile hypertension with improved control on carvedilol, but still elevated at times, with no sig nificant bradycardia and will continue this dose and monitor. 3. Chronic pain, controlled on fentanyl patch. 4. End-stage renal disease on hemodialysis twice weekly under Dr. Winters and Dr. Ruelas. PLAN: 1. Continue to monitor blood pressure and diabetes over the weekend. 2. Arrange for transfer to [place] Friday after dialysis. 3. Continue carvedilol, Procardia for blood pressure control and continue Levemir 25 units at night and sliding scale for diabetic control.
[2017-09-26] MEDS: Zolpidem Tartrate 5 MG TAB PO PRN (22:02)
--- NOTE | 2017-09-26 23:04 | PRG ---
DATE OF SERVICE: 09/25/2017 SUBJECTIVE: The patient feels well, returned from dialysis. No complaints and is ready to be transf erred to [facility] next week to continue dialysis. He is having no headach es, dizziness, chest pain, or shortness of breath. OBJECTIVE: VITAL SIGNS: Blood pressure 145/65, on new medication carvedilol; temperature is 97; pulse is down t o 61; respirations 18; O2 sats 96% on room air. LUNGS: Clear. CARDIAC: Regular rhythm. ABDOMEN: Soft and nontender. SKIN AND EXTREMITIES: Right knee, no erythema or warmth persistent, but decreased tenderness. NEUROLOGIC: Intact. ASSESSMENT: 1. Resolved septic knee with no evidence of recurrent infection and negative blood cultures, off ant ibiotics for 3 days. 2. Improved hypertension, on increased carvedilol 25 twice daily, but with bradycardia. We will mon itor. 3. Chronic degenerative disk disease and back pain, on fentanyl patch with good control. 4. Labile diabetes with persistent elevation to 285 in the morning and 306 in the afternoon despite increase in Levemir to 25 units subcutaneously at bedtime. PLAN: 1. Continue sliding scale and monitor Accu-Cheks on this dose. 2. Continue fentanyl patch. 3. Continue carvedilol twice daily and monitor closely. 4. Continue to monitor for blood culture returning positive. 5. Continue dialysis twice weekly.
[2017-09-27] MEDS: Levothyroxine Sodium 25 MCG TAB PO SCH (05:33)
[2017-09-27] MEDS: Levothyroxine Sodium 112 MCG TAB PO SCH (05:34)
[2017-09-27] MEDS: Docusate 100 MG CAP PO SCH ×2 (07:52→20:28)
[2017-09-27] MEDS: NIFEdipine XL 30 MG TAB PO SCH ×2 (07:52→20:28)
[2017-09-27] MEDS: Famotidine 20 MG TAB PO SCH ×2 (07:52→20:28)
[2017-09-27] MEDS: Calcium Acetate 667 MG CAP PO SCH ×3 (07:52→17:22)
[2017-09-27] MEDS: fentaNYL 50 mcg/hour Patch TD SCH (07:53)
[2017-09-27] MEDS: Carvedilol 25 MG TAB PO SCH ×2 (07:53→17:23)
[2017-09-27] MEDS: Folic Acid/Vit B Comp W-C PO SCH (07:53)
[2017-09-27] MEDS: HumaLOG 300 UNITS/3 ML VIAL SC SCH (08:00)
[2017-09-27] MEDS: Ondansetron ODT 4 MG TAB PO PRN (08:03)
[2017-09-27] MEDS: HYDROcodone/Acetaminophen 10/325 mg Tablet PO PRN ×2 (15:56→22:22)
[2017-09-27] MEDS: Levemir Flexpen 100 UNITS/ML PEN SC SCH (20:29)
[2017-09-27] MEDS ORDERED: cloNIDine 0.1 MG TAB PO SCH (21:00)
[2017-09-27] MEDS: Zolpidem Tartrate 5 MG TAB PO PRN (22:22)
[2017-09-28] MEDS: Levothyroxine Sodium 112 MCG TAB PO SCH (05:37)
[2017-09-28] MEDS: Levothyroxine Sodium 25 MCG TAB PO SCH (05:37)
[2017-09-28] MEDS ORDERED: Levemir Flexpen 100 UNITS/ML PEN SC SCH (07:57)
[2017-09-28] MEDS: HumaLOG 300 UNITS/3 ML VIAL SC SCH (09:58)
[2017-09-28] MEDS: Folic Acid/Vit B Comp W-C PO SCH (10:06)
[2017-09-28] MEDS: Calcium Acetate 667 MG CAP PO SCH ×3 (10:06→18:27)
[2017-09-28] MEDS: cloNIDine 0.1 MG TAB PO SCH ×2 (10:06→20:35)
[2017-09-28] MEDS: Famotidine 20 MG TAB PO SCH ×2 (10:07→20:34)
[2017-09-28] MEDS: Docusate 100 MG CAP PO SCH ×2 (10:07→20:34)
[2017-09-28] MEDS: Carvedilol 25 MG TAB PO SCH ×2 (10:07→18:28)
[2017-09-28] MEDS: NIFEdipine XL 30 MG TAB PO SCH ×2 (10:07→20:34)
--- NOTE | 2017-09-28 11:45 | PRG ---
DATE OF SERVICE: 09/27/2017 SUBJECTIVE: The patient feels well, no complaints. Anticipating discharge [place] in the next several days. OBJECTIVE: VITAL SIGNS: Shows her blood pressure is 122/66, temperature 97, pulse 69, respirations 20, O2 sats 90% on room air. LUNGS: Clear. CARDIAC: Examination shows regular rhythm. ABDOMEN: Soft, nontender. EXTREMITIES: Right knee shows minimal swelling, no erythema, warmth, but significant tenderness. ASSESSMENT: 1. Improved blood pressure controlled on increased carvedilol. 2. Resolved septic arthritis, off of antibiotics with no evidence for recurrent infection with negat kirill blood culture. 3. Chronic pain, controlled on fentanyl patch. 4. End-stage renal disease on hemodialysis twice weekly under the care of Dr. Winters and Dr. Ruelas . 5. Diabetic type 2 with only fair control with Accu-Cheks ranging 116 to 229, but with hypoglycemia this morning. PLAN: 1. Continue carvedilol, Procardia for blood pressure control. 2. Decrease Levemir to 15 units subcutaneously at bedtime. 3. Continue sliding scale and continue to monitor blood pressure on Procardia and carvedilol. 4. Continue dialysis twice weekly and arrange for transfer to [place] in two days.
--- NOTE | 2017-09-28 12:07 | PRG ---
DATE OF SERVICE: 09/28/2017 SUBJECTIVE: The patient is lying in the bed. Feels well. The only complaint is need to have her wh eelchair fixed prior to discharge tomorrow. Denies any chest pain, shortness of breath, increased le g pain. Did have an episode of hypoglycemia yesterday consistent with increased Levemir. OBJECTIVE: VITAL SIGNS: This morning, blood pressure is 175/74, pulse 64, temperature 97.8, O2 sat 99% on room air. LUNGS: Clear. CARDIAC: Examination shows regular rhythm. ABDOMEN: Soft, nontender. EXTREMITIES: Right knee shows swelling, but with no erythema or warmth and stable tenderness. ASSESSMENT AND PLAN: 1. Resolved septic arthritis of right knee. No evidence for recurrent infection with negative cultu res after antibiotics finished. 2. Persistent hypertension despite increased carvedilol and continued nifedipine and clonidine 0.1 t wice daily. 3. Labile diabetes with hypoglycemia in the a.m. after hyperglycemia the previous afternoon. We omero l decrease Levemir to 15 units instead of 25 units. PLAN: 1. Increase clonidine to 0.2 twice daily. Continue carvedilol 25 twice daily. Continue nifedipine 60 twice daily. 2. Decrease Levemir to 15 units at night and continue Humalog 11 units in the morning and titrate as an outpatient with Dr. Valero. 3. Continue dialysis in the morning and twice weekly under the care of Dr. Winters and Dr. Ruelas. 4. Transfer to [facility] closer to home tomorrow and have physical therapy obtain prope r support for her wheelchair.
[2017-09-28] MEDS: Zolpidem Tartrate 5 MG TAB PO PRN (21:51)
[2017-09-28] MEDS: Cyclobenzaprine 10 MG TAB PO PRN (21:51)
[2017-09-29] MEDS: Levothyroxine Sodium 112 MCG TAB PO SCH (05:20)
[2017-09-29] MEDS: Levothyroxine Sodium 25 MCG TAB PO SCH (05:20)
[2017-09-29 07:26] VITALS: BP 173/79; TEMP 97.8
[2017-09-29] MEDS: Calcium Acetate 667 MG CAP PO SCH (07:49)
[2017-09-29] MEDS: Famotidine 20 MG TAB PO SCH (07:50)
[2017-09-29] MEDS: Carvedilol 25 MG TAB PO SCH (07:50)
[2017-09-29] MEDS: Docusate 100 MG CAP PO SCH (07:50)
[2017-09-29] MEDS: cloNIDine 0.1 MG TAB PO SCH (07:50)
[2017-09-29] MEDS: HumaLOG 300 UNITS/3 ML VIAL SC SCH (07:51)
[2017-09-29] MEDS: Folic Acid/Vit B Comp W-C PO SCH (07:51)
[2017-09-29] MEDS: NIFEdipine XL 30 MG TAB PO SCH (07:51)
--- NOTE | 2017-10-03 13:43 | DIS ---
DATE OF ADMISSION: 08/28/2017 DATE OF DISCHARGE: 09/29/2017 FINAL DIAGNOSES: 1. Septic arthritis of right knee, resolved, off antibiotics with clearance by orthopedic surgeon. 2. Chronic pain, degenerative disk disease, fibromyalgia, being followed by Dr. Tolbert on fentany l patch, stable. 3. End-stage renal disease on hemodialysis twice weekly, being followed by Dr. Winters. 4. Type 2 diabetes, very brittle with poor control secondary to recurrent hypoglycemia. 5. Peripheral neuropathy. 6. Diabetic nephropathy causing end-stage renal disease. HOSPITAL COURSE: The patient is a 72-year-old white female with history of multiple medical problems including chronic pains secondary to degenerative disk disease and fibromyalgia as well as type 2 di abetes with brittle poor control with subsequent complication of peripheral neuropathy and diabetic n ephropathy on hemodialysis for end-stage renal disease, who presented with septic arthritis, right kn ee secondary to Serratia and was started on Rocephin daily as well as gentamicin at dialysis for 2 we eks. She was continued on this, had persistent pain with decreased erythema, warmth, and tenderness. Antibiotics were finished. Sed rate remained elevated, but she had no evidence of fever or chills. Negative blood cultures was seen by Orthopedics felt to have no evidence of infection. She was con tinued on dialysis and transported there by ambulance and followed by Dr. Winters. She was contin ued on fentanyl patch and tramadol for her degenerative disk disease and fibromyalgia continued to evans ve pain, was limit in her therapy, was unable to do significant physical therapy, but as her antibiot ics were finished and she wished to be discharged closer to home. She was discharged to be admitted to [facility]; however, they were transferred her to her dialysis until she is able to be maintained at home. On discharge, her laboratory showed white count of 7500, hematocrit 32, hemoglo bin 10. Accu-Cheks range from 193-244. Sodium was 138, potassium 4.5, albumin was 2.9. She felt st able wished to be discharged home and therefore, felt to be stable to be discharged to home and was d ischarged on levothyroxine 137 mcg daily, fentanyl patch 50 mcg every 72 hours, Ambien 5 mg daily as needed, nifedipine XL 60 mg daily, PhosLo 1334 mg 3 times daily, Bactrim-DS 1 daily, Neurontin 300 tw ice daily, folic acid 1 tablet daily, Protonix 40 mg daily, tramadol 100 every 6 hours as needed. Sh silvino will be followed by her private physician, Dr. Sebastian Valero there and this was discussed with him.
== END 2017-09-29 08:25 | DRG 548 ==
LOC: NAV ACUTE 15:33
PROVIDERS: ADMIT Internal Medicine; ATTEND Internal Medicine
DX: M00.861 Arthritis due to other bacteria, right knee (principal); N18.6 End stage renal disease; I12.0 Hypertensive chronic kidney disease with stage 5 chronic kidney disease or end stage renal disease; E11.21 Type 2 diabetes mellitus with diabetic nephropathy; E11.42 Type 2 diabetes mellitus with diabetic polyneuropathy; E11.22 Type 2 diabetes mellitus with diabetic chronic kidney disease; E11.65 Type 2 diabetes mellitus with hyperglycemia; E11.649 Type 2 diabetes mellitus with hypoglycemia without coma; G89.29 Other chronic pain; M54.5 Low back pain; E03.9 Hypothyroidism, unspecified; R25.1 Tremor, unspecified; R53.1 Weakness; N81.10 Cystocele, unspecified; B96.89 Other specified bacterial agents as the cause of diseases classified elsewhere; Z99.2 Dependence on renal dialysis; Z87.440 Personal history of urinary (tract) infections; Z86.718 Personal history of other venous thrombosis and embolism; Z88.1 Allergy status to other antibiotic agents; Z79.4 Long term (current) use of insulin; Z79.899 Other long term (current) drug therapy
CPT/HCPCS: 36415; 36416; 80053; 82947; 83036; 85025; 85652; 86140; 87040; 87086; A4216; G8978-GP-CM; G8979-GP-CI; J0696; J1642; J1815; J7050; Q0162